=== PATIENT | male | born 2000 | race Caucasian/White ===

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

== ENCOUNTER → 2019-07-31 | Outpatient (CLI) | payer OTHER ==
[~2019-07-31] MED LIST: CONRAY-43 43% 50ML VIAL (Q9960) As Ordered ONE; LIDOCAINE 1% MDV 20ML VIAL As Ordered ONE; methylPREDNISolone 80MG/ML SUSP 1ML VIAL (J1040) As Ordered ONE; methylPREDNISolone SUSP 40 MG/ML (DEPO-medrol) VIAL (J1030) As Ordered ONE
--- NOTE | 2019-07-31 16:52 | REP ---
Reason For Exam/Comment: Left hip pain Procedure: Left hip intra-articular injection The procedure was performed by CHAIM Landin, under the direct supervision of Dr. Marie. The benefits and risks including but not limited to pain, infection, bleeding and anaphylaxis were explained to the patient and informed consent was obtained both verbally and written. Directly prior to the start of the procedure, a formal timeout was completed in the procedure room. The left femoral neck joint space was localized using fluoroscopic guidance. The skin was prepped and draped in the usual sterile fashion. 5 mL of 1% lidocaine 10 mg/ml was used as a local anesthetic. Using fluoroscopic guidance a 22-gauge spinal needle was inserted and advanced to the left femoral neck joint space. 3 mL of Conray 43 was injected to verify needle placement. A 2 mL solution containing a 10 mL 1% lidocaine 10 mg/ml and 2 ml of Depo-Medrol 40 mg/ml was injected into the joint. The needle was removed and hemostasis was achieved. The patient tolerated the procedure well and there were no immediate complications. 0.1 minutes of fluoroscopy time was utilized for this procedure. Some fluoroscopic images are performed with last image hold technology. These images require no additional radiation. Reviewed by CHAIM Muro 07/31/2019 01:08 P Electronically Signed by Jose Luis Marie MD 07/31/2019 04:43 P
== END ==
LOC: M RADPRO 10:44
PROVIDERS: ATTEND Orthopaedic Surgery
DX: M25.552 Pain in left hip (principal); M91.12 Juvenile osteochondrosis of head of femur [Legg-Calve-Perthes], left leg
CPT/HCPCS: 20610; 77002; J1030; Q9960

== ENCOUNTER 2021-03-03 17:57 | Emergency (ER) | payer OTHER ==
[~2021-03-03] VITALS: Ht 165.1 cm; Wt 91.6 kg
[2021-03-03] MEDS ORDERED: ARIP1TAB10 PO (18:04)
[2021-03-03] MEDS ORDERED: GUAN1TAB19 PO (18:04)
[2021-03-03] MEDS ORDERED: DICL75TA PO (18:04)
[2021-03-03] MEDS ORDERED: OMEP40CA4 PO (18:04)
--- OUTSIDE RECORDS SUMMARY | 2021-03-03 18:25 | CCD ---
Author Author Ney Yifanchavo ThompsonMelly Organization Unknown Address [address] [address] Phone Care Team Providers Care Puller Out Name Role Phone Melly Brewster PCP Allergies, Adverse Reactions, Alerts No Data in Section Problem List Concept Problem Description Status Start Date Created Date Resolv ed Date Snomed Code F29 Unspecified Schizophrenia Spectrum and Other Psy chotic Disorder Active 09/24/2015 09/24/2015 Medications Rx Norm Medication Route Route Concept Start Date Stop Date Dosage Mo quency Duration Formula Strength Dosage Form Dosage Form Code Dosage Description Medication Id Account Npid Author First Name Author Last Name Taxonomy Code Taxonomy Desc Phone Number [phone] aripiprazole by mouth [id number] 01/03/2020 at bedtime 15 mg t ablet 75446 [phone] Melly Leone [id number] Nurse Practitioner [phone] guanfacine by mouth [id number] 04/06/2020 02/03/2021 once a day 30 4 mg tablet extended release 24 hr as directed 31126 [id number] [phone] Melly Ney [id number] Nurse Practitioner [phone] Social History Social History Element Description Concept Effective Date Smoking Status Unknown if ever smoked [id number] Immunizations No Data in Section Vital Signs No Data in Section Procedures Date Concept Id Description Targeted Site Concept Targeted Site Concept Type 12/31/2020 19758 E/M Level 3 - Established Patient CPT Patient has no history of implantable de vices Encounters Encounter Start Date End Date Encounter Type Description Diagnosis Di agnosis Desc Location Author First Name Author Last Name Npid Taxonomy Cod e Taxonomy Desc Phone Number Location Addr1 Location Addr2 Location City Location [place] Location Zip [address] 12/31/2020 12/31/2020 14969 E/M Level 3 - Established Pa tient F29 Unspecified Schizophrenia Spectrum and Other Psychotic Disorder [facility] Ney Pickard [phone] [id number] Nurse Practition [phone] [address] [place] [phone] Plan of Treatment No Data in Section Lab Results No Data in Section Instructions No Data in Section Functional Cognitive Status No Data in Section Insurance Providers Insurance Id Policy Effective Date Policy Thru Date Company N ar[employer] [id number] 2018 [employer]
--- OUTSIDE RECORDS SUMMARY | 2021-03-03 18:25 | CCD ---
Author Author Yifan Harrell Organization Unknown Address [address] [address] Phone Care Team Providers Care Manager Garage Name Role Phone Julio Cesar Chrissy PCP Allergies, Adverse Reactions, Alerts No Data [...] Name Taxonomy Code Taxonomy Desc Phone Number [phone] aripiprazole by mouth [id number] 01/03/2020 05/09/2021 at bedtime 30 15 mg tablet 27629 [phone] Melly Brewster [id number] Nurse P nisa [phone] guanfacine by mouth [id number] 04/06/2020 05/09/2021 once a day 30 4 mg tablet extended release 24 hr as directed 42905 [phone] [phone] Melly Brewster [id number] Nurse Practitioner [phone] Social History Social History Element Description Concept Effective Date Smoking Status Unknown if ever smoked [id number] Immunizations No Data in Section Vital Signs No Data in Section Procedures Date Concept Id Description Targeted Site Concept Targeted Site Concept Type 03/01/2021 49560 Extended Individual Psychotherapy - 45 min CPT Patient has no history of implantable de vices Encounters Encounter Start Date End Date Encounter Type Description Diagnosis Di agnosis Desc Location Author First Name Author Last Name Npid Taxonomy Cod e Taxonomy Desc Phone Number Location Addr1 Location Addr2 Location City Location Sta Location Zip [address] 03/01/2021 03/01/2021 55265 Extended Individual Psych otherapy - 45 min F29 Unspecified Schizophrenia Spectrum and Other Psychotic Disorder [facility] Julio Cesar Chrissy [phone] [id number] Social Wo rker [phone] [address] [place] [phone] Plan of Treatment No Data in Section Lab Results No Data in Section Instructions No Data in Section Insurance Providers Insurance Id Policy Effective Date Policy Thru Date Company N ar[employer] [id number] 2018 [employer]
--- OUTSIDE RECORDS SUMMARY | 2021-03-03 18:25 | CCD ---
Author Author Yifan Harrell Organization Unknown Address [address] [address] Phone Care Team Providers Care Harness Rigger Name Role Phone Julio Cesar Chrissy PCP [...] Name Taxonomy Code Taxonomy Desc Phone Number [phone] aripiprazole by mouth [id number] 01/03/2020 05/09/2021 at bedtime 30 15 mg tablet 95657 [phone] Melly Brewster [id number] Nurse P nisa [phone] guanfacine by mouth [id number] 04/06/2020 05/09/2021 once a day 30 4 mg tablet extended release 24 hr as directed 00751 [phone] 84 Melly Brewster [id number] Nurse Practitioner [phone] Social History Social History Element Description Concept Effective Date Smoking Status Unknown if ever smoked [id number] Immunizations No Data in Section Vital Signs No Data in Section Procedures Date Concept Id Description Targeted Site Concept Targeted Site Concept Type 02/15/2021 38695 Extended Individual Psychotherapy - 45 min CPT Patient has no history of implantable de vices Encounters Encounter Start Date End Date Encounter Type Description Diagnosis Di agnosis Desc Location Author First Name Author Last Name Npid Taxonomy Cod e Taxonomy Desc Phone Number Location Addr1 Location Addr2 Location City Location Sta Location Zip [address] 02/15/2021 02/15/2021 43274 Extended Individual Psych otherapy - 45 min F29 Unspecified Schizophrenia Spectrum and Other Psychotic Disorder [facility] Julio Cesar Chrissy [phone] [id number] Social Wo rker [phone] [address] [place] [phone] Plan of Treatment No Data in Section Lab Results No Data in Section Instructions No Data in Section Insurance Providers Insurance Id Policy Effective Date Policy Thru Date Company N ar[employer] [id number] 2018 [employer]
--- OUTSIDE RECORDS SUMMARY | 2021-03-03 18:25 | CCD ---
Author Author Yifan Harrell Organization Unknown Address [address] [address] Phone Care Team Providers Care Network Operations Manager Name Role Phone Chrissy Harrell PCP Allergies, Adverse Reactions, Alerts No Data [...] Name Taxonomy Code Taxonomy Desc Phone Number [phone] aripiprazole by mouth [id number] 01/03/2020 at bedtime 15 mg t ablet 44067 [phone] Melly Brewster [id number] Nurse Practitioner [phone] guanfacine by mouth [id number] 04/06/2020 02/03/2021 once a day 30 4 mg tablet extended release 24 hr as directed 10828 [id number] 84 Melly Brewster [id number] Nurse Practitioner [phone] Social History Social History Element Description Concept Effective Date Smoking Status Unknown if ever smoked [id number] Immunizations No Data in Section Vital Signs No Data in Section Procedures Date Concept Id Description Targeted Site Concept Targeted Site Concept Type 12/09/2020 08486 Extended Individual Psychotherapy - 45 min CPT Patient has no history of implantable de vices Encounters Encounter Start Date End Date Encounter Type Description Diagnosis Di agnosis Desc Location Author First Name Author Last Name Npid Taxonomy Cod e Taxonomy Desc Phone Number Location Addr1 Location Addr2 Location City Location Sta Location Zip [address] 12/09/2020 12/09/2020 50445 Extended Individual Psych otherapy - 45 min F29 Unspecified Schizophrenia Spectrum and Other Psychotic Disorder [facility] Julio Cesar Lowe [phone] [id number] Social Wo rker [phone] [address] [place] [phone] Plan of Treatment No Data in Section Lab Results No Data in Section Instructions No Data in Section Insurance Providers Insurance Id Policy Effective Date Policy Thru Date Company Angeline arredondo [id number] 2018 [employer]
--- OUTSIDE RECORDS SUMMARY | 2021-03-03 18:25 | CCD ---
Author Author Yifan Harrell Organization Unknown Address [address] [address] Phone Care Team Providers Care Oil Treater Name Role Phone Chrissy Harrell PCP Allergies, [...] Name Taxonomy Code Taxonomy Desc Phone Number [phone] aripiprazole by mouth [id number] 01/03/2020 at bedtime 15 mg t ablet 83766 [phone] Melly Brewster [id number] Nurse Practitioner [phone] guanfacine by mouth [id number] 04/06/2020 02/03/2021 once a day 30 4 mg tablet extended release 24 hr as directed 97550 857356 [id number] 84 Melly Brewster [id number] Nurse Practitioner [phone] Social History Social History Element Description Concept Effective Date Smoking Status Unknown if ever smoked [id number] Immunizations No Data in Section Vital Signs No Data in Section Procedures Date Concept Id Description Targeted Site Concept Targeted Site Concept Type 01/04/2021 67460 Extended Individual Psychotherapy - 45 min CPT Patient has no history of implantable de vices Encounters Encounter Start Date End Date Encounter Type Description Diagnosis Di agnosis Desc Location Author First Name Author Last Name Npid Taxonomy Cod e Taxonomy Desc Phone Number Location Addr1 Location Addr2 Location [facility] Location [facility] Location Zip [address] 01/04/2021 01/04/2021 71190 Extended Individual Psych otherapy - 45 min F29 Unspecified Schizophrenia Spectrum and Other Psychotic Disorder Community [facility] Julio Cesar Lowe [phone] [id number] Social Wo rker [phone] [address] [place] [phone] Plan of Treatment No Data in Section Lab Results No Data in Section Instructions No Data in Section Insurance Providers Insurance Id Policy Effective Date Policy Thru Date Company [employer]eline arredondo [id number] 2018 [employer]
--- OUTSIDE RECORDS SUMMARY | 2021-03-03 18:25 | CCD ---
Author Author Yifan Harrell Organization Unknown Address [address] [address] Phone Care Team Providers Care Dental Surgeon Name Role Phone Chrissy Harrell PCP Allergies, [...] Name Taxonomy Code Taxonomy Desc Phone Number [phone] aripiprazole by mouth [id number] 01/03/2020 at bedtime 15 mg t ablet 38634 [phone] Melly Brewster [id number] Nurse Practitioner [phone] guanfacine by mouth [id number] 04/06/2020 02/03/2021 once a day 30 4 mg tablet extended release 24 hr as directed 46358 [id number] 84 Melly Brewster [id number] Nurse Practitioner [phone] Social History Social History Element Description Concept Effective Date Smoking Status Unknown if ever smoked [id number] [id number] Immunizations No Data in Section Vital Signs No Data in Section Procedures Date Concept Id Description Targeted Site Concept Targeted Site Concept Type 12/07/2020 21921 Extended Individual Psychotherapy - 45 min CPT Patient has no history of implantable de vices Encounters Encounter Start Date End Date Encounter Type Description Diagnosis Di agnosis Desc Location Author First Name Author Last Name Npid Taxonomy Cod e Taxonomy Desc Phone Number Location Addr1 Location Addr2 Location [facility] Company Location [facility] Location Zip [address] 12/07/2020 12/07/2020 58959 Extended Individual Psych otherapy - 45 min F29 Unspecified Schizophrenia Spectrum and Other Psychotic Disorder Community [facility] Julio Cesar Lowe [phone] [id number] Social Wo rker [phone] [address] [place] [phone] Plan of Treatment No Data in Section Lab Results No Data in Section Instructions No Data in Section Insurance Providers Insurance Id Policy Effective Date Policy Thru Date Company Angeline arredondo [id number] 2018 [employer]
--- OUTSIDE RECORDS SUMMARY | 2021-03-03 18:25 | CCD ---
Author Author Ney Yifanchavo ThompsonMelly Organization Unknown Address [address] [address] Phone Care Team Providers Care Foreign Service Officer Name Role Phone Melly Brewster PCP Allergies, [...] Name Taxonomy Code Taxonomy Desc Phone Number [phone] aripiprazole by mouth [id number] 01/03/2020 at bedtime 15 mg t ablet 13051 [phone] Melly Leone [id number] Nurse Practitioner [phone] guanfacine by mouth [id number] 04/06/2020 02/03/2021 once a day 30 4 mg tablet extended release 24 hr as directed 56127 [id number] 84 Melly Ney [id number] Nurse Practitioner [phone] Social History Social History Element Description Concept Effective Date Smoking Status Unknown if ever smoked [id number] Immunizations No Data in Section Vital Signs No Data in Section Procedures Date Concept Id Description Targeted Site Concept Targeted Site Concept Type 12/03/2020 79667 E/M Level 3 - Established Patient CPT Patient has no history of implantable de vices Encounters Encounter Start Date End Date Encounter Type Description Diagnosis Di agnosis Desc Location Author First Name Author Last Name Npid Taxonomy Cod e Taxonomy Desc Phone Number Location Addr1 Location Addr2 Location City Location Sta te Location Zip [address] 12/03/2020 12/03/2020 51548 E/M Level 3 - Established Pa tient F29 Unspecified Schizophrenia Spectrum and Other Psychotic Disorder [facility] Ney Pickard [phone] [id number] Nurse [facility] [phone] [address] [place] [phone] Plan of Treatment No Data in Section Lab Results No Data in Section Instructions No Data in Section Functional Cognitive Status No Data in Section Insurance Providers Insurance Id Policy Effective Date Policy Thru Date Company N ar[employer] [id number] 2018 [employer]
--- OUTSIDE RECORDS SUMMARY | 2021-03-03 18:25 | CCD ---
Author Author Dorenejuan aYifan trejo Organization Unknown Address [address] [address] Phone Care Team Providers Care Supplier Quality Engineering Manager Name Role Phone Hayley Martins PCP Allergies, Adverse Reactions, Alerts No Data [...] Name Taxonomy Code Taxonomy Desc Phone Number [phone] aripiprazole by mouth [id number] 01/03/2020 at bedtime 15 mg t ablet 48174 [phone] Melly Brewster [id number] Nurse Practitioner [phone] guanfacine by mouth [id number] 04/06/2020 02/03/2021 once a day 30 4 mg tablet extended release 24 hr as directed 51326 [phone] 84 Melly Brewster [id number] Nurse Practitioner [phone] Social History Social History Element Description Concept Effective Date Smoking Status Unknown if ever smoked [id number] Immunizations No Data in Section Vital Signs Encounter Date Height Ins Weight Lbs Bmi Bp Systolic Bp Diastoli c Oxygen Saturation Respiration Rate Pulse Rate Body Temp Head Circumference Heigh t Lying 12/21/2020 64.00 199.00 34.15 123 87 0.00 18 77 100.10 0.0 0 .00 Procedures Date Concept Id Description Targeted Site Concept Targeted Site Concept Type 12/21/2020 59526 Health Monitoring - 30 Min CPT Patient has no history of implantable de vices Encounters Encounter Start Date End Date Encounter Type Description Diagnosis Di agnosis Desc Location Author First Name Author Last Name Npid Taxonomy Cod e Taxonomy Desc Phone Number Location Addr1 Location Addr2 Location City Location [place] Location Zip [address] 12/21/2020 12/21/2020 66523 Health Monitoring - 30 Min F 29 Unspecified Schizophrenia Spectrum and Other Psychotic Disorder Community [facility] Hayley [phone] [id number] Registered Nurse [phone] [address] [place] [phone] Plan of Treatment No Data in Section Lab Results No Data in Section Instructions No Data in Section Functional Cognitive Status No Data in Section Insurance Providers Insurance Id Policy Effective Date Policy Thru Date Company N ar[employer]fo [id number] 2018 [employer]
--- OUTSIDE RECORDS SUMMARY | 2021-03-03 18:25 | CCD ---
Author Author Ney Yifanchavo ThompsonMelly Organization Unknown Address [address] [address] Phone Care Team Providers Care Bingo Caller Name Role Phone Melly Brewster PCP Allergies, [...] Name Taxonomy Code Taxonomy Desc Phone Number [phone] aripiprazole by mouth [id number] 01/03/2020 at bedtime 15 mg t ablet 71696 [phone] Melly Leone [id number] Nurse Practitioner [phone] guanfacine by mouth [id number] 04/06/2020 03/31/2021 once a day 30 4 mg tablet extended release 24 hr as directed 55781 029116 [id number] 84 Melly Ney [id number] Nurse Practitioner [phone] Social History Social History Element Description Concept Effective Date Smoking Status Unknown if ever smoked [id number] Immunizations No Data in Section Vital Signs No Data in Section Procedures Date Concept Id Description Targeted Site Concept Targeted Site Concept Type 02/08/2021 87711 E/M Level 3 - Established Patient CPT Patient has no history of implantable de vices Encounters Encounter Start Date End Date Encounter Type Description Diagnosis Di agnosis Desc Location Author First Name Author Last Name Npid Taxonomy Cod e Taxonomy Desc Phone Number Location Addr1 Location Addr2 Location City Location Sta te Location Zip [address] 02/08/2021 02/08/2021 08927 E/M Level 3 - Established Pa tient F29 Unspecified Schizophrenia Spectrum and Other Psychotic Disorder [facility] Ney Pickard [phone] [id number] Nurse [facility] [phone] [address] [place] [phone] Plan of Treatment No Data in Section Lab Results No Data in Section Instructions No Data in Section Functional Cognitive Status No Data in Section Insurance Providers Insurance Id Policy Effective Date Policy Thru Date Company N arnulfo [id number] 2018 [employer]
--- OUTSIDE RECORDS SUMMARY | 2021-03-03 18:26 | CCD ---
Author Author [facility] Organization [facility] Address Unknown Phone Unavailable Care Team Providers Care Wigs Salesperson Name Role Phone Darci Giang MD Unavailable Unavailable Darci Giang MD Unavailable Unavailable Darci Giang MD Unavailable Unavailable Darci Giang MD Unavailable Unavailable Darci Giang MD Unavailable Unavailable Darci Giang MD Unavailable Unavailable Darci Giang MD Unavailable Unavailable Darci Giang MD Unavailable Unavailable Darci Giang MD Unavailable Unavailable Darci Giang MD Unavailable Unavailable Darci Giang MD Unavailable Unavailable Darci Giang MD Unavailable Unavailable Darci Giang MD Unavailable Unavailable Darci Giang MD Unavailable Unavailable Darci Giang MD Unavailable Unavailable Darci Giang MD Unavailable Unavailable Darci Giang MD Unavailable Unavailable Darci Giang MD Unavailable Unavailable Darci Giang MD Unavailable Unavailable Darci Giang MD Unavailable Unavailable Darci Giang MD Unavailable Unavailable Darci Giang MD Unavailable Unavailable Darci Giang MD Unavailable Unavailable Darci Giang MD Unavailable Unavailable Darci Giang MD Unavailable Unavailable Darci Giang MD Unavailable Unavailable Darci Giang MD Unavailable Unavailable Darci Giang MD Unavailable Unavailable Darci Giang MD Unavailable Unavailable Darci Giang MD Unavailable Unavailable Darci Giang MD Unavailable Unavailable Darci Giang MD Unavailable Unavailable Darci Giang MD Unavailable Unavailable Darci Giang MD Unavailable Unavailable Darci Giang MD Unavailable Unavailable Darci Giang MD Unavailable Unavailable Darci Giang MD Unavailable Unavailable Darci Giang MD Unavailable Unavailable Darci Giang MD Unavailable Unavailable Darci Giang MD Unavailable Unavailable Darci Giang MD Unavailable Unavailable Darci Giang MD Unavailable Unavailable Darci Giang MD Unavailable Unavailable Darci Giang MD Unavailable Unavailable Darci Giang MD Unavailable Unavailable Darci Giang MD Unavailable Unavailable Darci Giang MD Unavailable Unavailable Darci Giang MD Unavailable Unavailable Darci Giang MD Unavailable Unavailable Darci Giang MD Unavailable Unavailable Darci Giang MD Unavailable Unavailable Darci Giang MD Unavailable Unavailable Darci Giang MD Unavailable Unavailable Darci Giang MD Unavailable Unavailable Darci Giang MD Unavailable Unavailable Darci Giang MD Unavailable Unavailable Darci Giang MD Unavailable Unavailable Darci Giang MD Unavailable Unavailable Darci Giang MD Unavailable Unavailable Darci Giang MD Unavailable Unavailable Darci Giang MD Unavailable Unavailable Darci Giang MD Unavailable Unavailable Darci Giang MD Unavailable Unavailable Darci Giang MD Unavailable Unavailable Darci Giang MD Unavailable Unavailable Darci Giang MD Unavailable Unavailable Darci Giang MD Unavailable Unavailable Darci Giang MD Unavailable Unavailable Darci Giang MD Unavailable Unavailable Darci Giang MD Unavailable Unavailable Darci Giang MD Unavailable Unavailable Darci Giang MD Unavailable Unavailable Darci Giang MD Unavailable Unavailable Darci Giang MD Unavailable Unavailable Darci Giang MD Unavailable Unavailable Darci Giang MD Unavailable Unavailable Darci Giang MD Unavailable Unavailable Darci Giang MD Unavailable Unavailable Giang, Darci Mendez MD Unavailable Unavailable Giang, Darci Mendez MD Unavailable Unavailable Giang, Darci Mendez MD Unavailable Unavailable Giang, Darci Mendez MD Unavailable Unavailable Giang, Darci Mendez MD Unavailable Unavailable Giang, Darci Mendez MD Unavailable Unavailable Giang, Darci Mendez MD Unavailable Unavailable Giang, Darci Mendez MD Unavailable Unavailable Giang, Darci Mendez MD Unavailable Unavailable Giang, Darci Mendez MD Unavailable Unavailable Giang, Darci Mendez MD Unavailable Unavailable Giang, Darci Mendez MD Unavailable Unavailable Giang, Darci Mendez MD Unavailable Unavailable Giang, Darci Mendez MD Unavailable Unavailable Giang, Darci Mendez MD Unavailable Unavailable LETTIERE, A CHAYA PA Unavailable Unavailable LETTIERE, A CHAYA PA Unavailable Unavailable LETTIERE, A CHAYA PA Unavailable Unavailable LETTIERE, A CHAYA PA Unavailable Unavailable LETTIERE, A CHAYA PA Unavailable Unavailable LETTIERE, A CHAYA PA Unavailable Unavailable LETTIERE, A CHAYA PA Unavailable Unavailable LETTIERE, A CHAYA PA Unavailable Unavailable LETTIERE, A CHAYA PA Unavailable Unavailable LETTIERE, A CHAYA PA Unavailable Unavailable LETTIERE, A CHAYA PA Unavailable Unavailable LETTIERE, A CHAYA PA Unavailable Unavailable LETTIERE, A CHAYA PA Unavailable Unavailable LETTIERE, A CHAYA PA Unavailable Unavailable LETTIERE, A CHAYA PA Unavailable Unavailable LETTIERE, A CHAYA PA Unavailable Unavailable LETTIERE, A CHAYA PA Unavailable Unavailable LETTIERE, A CHAYA PA Unavailable Unavailable LETTIERE, A CHAYA PA Unavailable Unavailable LETTIERE, A CHAYA PA Unavailable Unavailable LETTIERE, A CHAYA PA Unavailable Unavailable LETTIERE, A CHAYA PA Unavailable Unavailable LETTIERE, A CHAYA PA Unavailable Unavailable LETTIERE, A CHAYA PA Unavailable Unavailable LETTIERE, A CHAYA PA Unavailable Unavailable LETTIERE, A CHAYA PA Unavailable Unavailable LETTIERE, A CHAYA PA Unavailable Unavailable LETTIERE, A CHAYA PA Unavailable Unavailable LETTIERE, A CHAYA PA Unavailable Unavailable LETTIERE, A CHAYA PA Unavailable Unavailable LETTIERE, A CHAYA PA Unavailable Unavailable Nowak, P Henry PA Unavailable Unavailable Nowak, P Henry PA Unavailable Unavailable Nowak, P Henry PA Unavailable Unavailable Nowak, P Henry PA Unavailable Unavailable Nowak, P Henry PA Unavailable Unavailable Nowak, P Henry PA Unavailable Unavailable Nowak, P Henry PA Unavailable Unavailable Nowak, P Henry PA Unavailable Unavailable Nowak, P Henry PA Unavailable Unavailable Nowak, P Henry PA Unavailable Unavailable Nowak, P Henry PA Unavailable Unavailable Nowak, P Henry PA Unavailable Unavailable Nowak, P Henry PA Unavailable Unavailable Nowak, P Henry PA Unavailable Unavailable Nowak, P Henry PA Unavailable Unavailable Nowak, P Henry PA Unavailable Unavailable Nowak, P Henry PA Unavailable Unavailable Nowak, P Henry PA Unavailable Unavailable Nowak, P Henry PA Unavailable Unavailable Nowak, P Henry PA Unavailable Unavailable Nowak, P Henry PA Unavailable Unavailable Nowak, P Henry PA Unavailable Unavailable Nowak, P Henry PA Unavailable Unavailable Nowak, P Henry PA Unavailable Unavailable Nowak, P Henry PA Unavailable Unavailable Nowak, P Henry PA Unavailable Unavailable Nowak, P Henry PA Unavailable Unavailable Nowak, P Henry PA Unavailable Unavailable Nowak, P Henry PA Unavailable Unavailable Nowak, P Henry PA Unavailable Unavailable Nowak, P Henry PA Unavailable Unavailable Nowak, P Henry PA Unavailable Unavailable Nowak, P Henry PA Unavailable Unavailable Nowak, P Henry PA Unavailable Unavailable Nowak, P Henry PA Unavailable Unavailable Nowak, P Henry PA Unavailable Unavailable Nowak, P Henyr PA Unavailable Unavailable Nowak, P Henry PA Unavailable Unavailable Nowak, P Henry PA Unavailable Unavailable Nowak, P Henry PA Unavailable Unavailable Nowak, P Henry PA Unavailable Unavailable Nowak, P Henry PA Unavailable Unavailable Riley, Morena Erendira PA Unavailable Unavailable Riley, Morena Erendira PA Unavailable Unavailable Riley, Morena Erendira PA Unavailable Unavailable Riley, Morena Erendira PA Unavailable Unavailable Riley, Morena Erendira PA Unavailable Unavailable Riley, Morena Erendira PA Unavailable Unavailable Riley, Morena Erendira PA Unavailable Unavailable Riley, Morena Erendira PA Unavailable Unavailable Riley, Morena Erendira PA Unavailable Unavailable Riley, Morena Erendira PA Unavailable Unavailable Veley, Yarelis PRIMARY OPERATOR Unavailable Unavailable Veley, Yarelis PRIMARY OPERATOR Unavailable Unavailable Veley, Yarelis PRIMARY OPERATOR Unavailable Unavailable Veley, Yarelis PRIMARY OPERATOR Unavailable Unavailable Veley, Yarelis PRIMARY OPERATOR Unavailable Unavailable Veley, Yarelis PRIMARY OPERATOR Unavailable Unavailable Veley, Yarelis PRIMARY OPERATOR Unavailable Unavailable Veley, Yarelis PRIMARY OPERATOR Unavailable Unavailable Veley, Yarelis PRIMARY OPERATOR Unavailable Unavailable Veley, Yarelis PRIMARY OPERATOR Unavailable Unavailable Veley, Yarelis PRIMARY OPERATOR Unavailable Unavailable Veley, Yarelis PRIMARY OPERATOR Unavailable Unavailable Veley, Yarelis PRIMARY OPERATOR Unavailable Unavailable Veley, Yarelis PRIMARY OPERATOR Unavailable Unavailable Veley, Yarelis PRIMARY OPERATOR Unavailable Unavailable Veley, Yarelis PRIMARY OPERATOR Unavailable Unavailable Veley, Yarelis PRIMARY OPERATOR Unavailable Unavailable Veley, Yarelis PRIMARY OPERATOR Unavailable Unavailable Veley, Yarelis PRIMARY OPERATOR Unavailable Unavailable Veley, Yarelis PRIMARY OPERATOR Unavailable Unavailable Veley, Yarelis PRIMARY OPERATOR Unavailable Unavailable Veley, Yarelis PRIMARY OPERATOR Unavailable Unavailable Veley, Yarelis PRIMARY OPERATOR Unavailable Unavailable Veley, Yarelis PRIMARY OPERATOR Unavailable Unavailable Veley, Yarelis PRIMARY OPERATOR Unavailable Unavailable Veley, Yarelis PRIMARY OPERATOR Unavailable Unavailable Veley, Yarelis PRIMARY OPERATOR Unavailable Unavailable Veley, Yarelis PRIMARY OPERATOR Unavailable Unavailable Veley, Yarelis PRIMARY OPERATOR Unavailable Unavailable Veley, Yarelis PRIMARY OPERATOR Unavailable Unavailable Veley, Yarelis PRIMARY OPERATOR Unavailable Unavailable Veley, Yarelis PRIMARY OPERATOR Unavailable Unavailable Veley, Yarelis PRIMARY OPERATOR Unavailable Unavailable Veley, Yarelis PRIMARY OPERATOR Unavailable Unavailable Veley, Yarelis PRIMARY OPERATOR Unavailable Unavailable Alguire, Hayley Unavailable NEY, H BEREKET PRIMARY OPERATOR Unavailable Unavailable NEY, H BEREKET PRIMARY OPERATOR Unavailable Unavailable NEY, H BEREKET PRIMARY OPERATOR Unavailable Unavailable NEY, H BEREKET PRIMARY OPERATOR Unavailable Unavailable NEY, H BEREKET PRIMARY OPERATOR Unavailable Unavailable NEY, H BEREKET PRIMARY OPERATOR Unavailable Unavailable NEY, H BEREKET PRIMARY OPERATOR Unavailable Unavailable NEY, H BEREKET PRIMARY OPERATOR Unavailable Unavailable NEY, H BEREKET PRIMARY OPERATOR Unavailable Unavailable Veley, Yarelis PRIMARY OPERATOR Unavailable Unavailable Veley, Yarelis PRIMARY OPERATOR Unavailable Unavailable Veley, Yarelis PRIMARY OPERATOR Unavailable Unavailable Veley, Yarelis PRIMARY OPERATOR Unavailable Unavailable Veley, Yarelis PRIMARY OPERATOR Unavailable Unavailable Veley, Yarelis PRIMARY OPERATOR Unavailable Unavailable Veley, Yarelis PRIMARY OPERATOR Unavailable Unavailable Veley, Yarelis PRIMARY OPERATOR Unavailable Unavailable Veley, Yarelis PRIMARY OPERATOR Unavailable Unavailable Veley, Yarelis PRIMARY OPERATOR Unavailable Unavailable Veley, Yarelis PRIMARY OPERATOR Unavailable Unavailable Veley, Yarelis PRIMARY OPERATOR Unavailable Unavailable Veley, Yarelis PRIMARY OPERATOR Unavailable Unavailable Veley, Yarelis PRIMARY OPERATOR Unavailable Unavailable Veley, Yarelis PRIMARY OPERATOR Unavailable Unavailable Veley, Yarelis PRIMARY OPERATOR Unavailable Unavailable Veley, Yarelis PRIMARY OPERATOR Unavailable Unavailable Veley, Yarelis PRIMARY OPERATOR Unavailable Unavailable Veley, Yarelis PRIMARY OPERATOR Unavailable Unavailable Veley, Yarelis PRIMARY OPERATOR Unavailable Unavailable Veley, Yarelis PRIMARY OPERATOR Unavailable Unavailable Veley, Yarelis PRIMARY OPERATOR Unavailable Unavailable Veley, Yarelis PRIMARY OPERATOR Unavailable Unavailable Veley, Yarelis PRIMARY OPERATOR Unavailable Unavailable Veley, Yarelis PRIMARY OPERATOR Unavailable Unavailable Veley, Yarelis PRIMARY OPERATOR Unavailable Unavailable Veley, Yarelis PRIMARY OPERATOR Unavailable Unavailable Veley, Yarelis PRIMARY OPERATOR Unavailable Unavailable Veley, Yarelis PRIMARY OPERATOR Unavailable Unavailable Veley, Yarelis PRIMARY OPERATOR Unavailable Unavailable Veley, Yarelis PRIMARY OPERATOR Unavailable Unavailable Veley, Yarelis PRIMARY OPERATOR Unavailable Unavailable Veley, Yarelis PRIMARY OPERATOR Unavailable Unavailable Veley, Yarelis PRIMARY OPERATOR Unavailable Unavailable Veley, Yarelis PRIMARY OPERATOR Unavailable Unavailable Chrissy Harrell Unavailable Re-disclosure Warning The records that you are about to access may contain information from federally-assisted alcohol or drug abuse programs. If such information is present, then the following federally mandated warning applies: This information has been disclosed to you from records protected by federal confidentiality rules (42 CFR part 2). The federal rules prohibit you from making any further disclosure of this information unless further disclosure is expressly permitted by the written consent of the person to whom it pertains or as otherwise permitted by 42 CFR part 2. A general authorization for the release of medical or other information is NOT sufficient for this purpose. The Federal rules restrict any use of the information to criminally investigate or prosecute any alcohol or drug abuse patient.The records that you are about to access may contain highly sensitive health information, the redisclosure of which is protected by Article 27-F of the [facility] Public Health law. If you continue you may have access to information: Regarding HIV / AIDS; Provided by facilities licensed or operated by the [facility] Office of Mental Health; or Provided by the [facility] Office for People With Developmental Disabilities. If such information is present, then the following [facility] mandated warning applies: This information has been disclosed to you from confidential records which are protected by state law. State law prohibits you from making any further disclosure of this information without the specific written consent of the person to whom it pertains, or as otherwise permitted by law. Any unauthorized further disclosure in violation of state law may result in a fine or intermediate sentence or both. A general authorization for the release of medical or other information is NOT sufficient authorization for further disc losure. Allergies and Adverse Reactions Type Description Substance Reaction Status Data Source(s ) Propensity to adverse reactions NO KNOWN ALLERGIES NO KNOWN ALLERGIES [facility] Allergy to substance Allergy to substance Allergy to substance [facility] ([facility]) Family History Family Member Name Family Member Gender Family Member Status Date o f Status Description Data Source(s) Unknown Unknown Problem [facility] ([facility]) Encounters Encounter Providers Location Date Indications Data Source(s ) Extended Individual Psychotherapy - 45 min Attender: Chrissyrod Harrell [facility] 03/01/2021 11:45:00 AM EDT - 03/01/2021 11:45:00 AM EDT [facility] ([facility]) Attender: Chrissy Harrell 03/01/2021 12:00:00 AM EDT [facility] ([facility]) Extended Individual Psychotherapy - 45 min Attender: Chrissy Harrell [facility] 02/15/2021 03:00:00 AM EDT - 02/15/2021 03:00:00 AM EDT [facility] ([facility]) Attender: Chrissy Harrell 02/15/2021 12:00:00 AM EDT [facility] ([facility]) Outpatient Attender: BEREKET CALLOWAY NP [facility] 02/08/2021 02:00:00 AM EDT - 02/08/2021 02:00:00 AM EDT [facility] ([facility]) Attender: BEREKET CALLOWAY NP 02/08/2021 12:00:00 AM EDT [facility] ([facility]) Extended Individual Psychotherapy - 45 min Attender: Chrissy Harrell [facility] 01/04/2021 11:45:00 AM EDT - 01/04/2021 11:45:00 AM EDT [facility] ([facility]) Attender: Chrissy Harrell 01/04/2021 12:00:00 AM EDT [facility] ([facility]) Outpatient Attender: BEREKET CALLOWAY NP [facility] 12/31/2020 02:00:00 AM EDT - 12/31/2020 02:00:00 AM EDT [facility] ([facility]) Attender: BEREKET CALLOWAY NP 12/31/2020 12:00:00 AM EDT [facility] ([facility]) Health Monitoring - 30 Min Attender: Hayley Mayomaya Mani [facility] 12/21/2020 02:30:00 AM EDT - 12/21/2020 02:30:00 AM EDT [facility] ([facility]) Attender: Hayley Martins 12/21/2020 12:00:00 AM EDT [facility] ([facility]) Extended Individual Psychotherapy - 45 min Attender: Chrissy [facility] 12/09/2020 11:00:00 AM EDT - 12/09/2020 11:00:00 AM EDT [facility] ([facility]) Attender: Chrissy Harrell 12/09/2020 12:00:00 AM EDT [facility] ([facility]) Attender: Chrissy Harrell 12/08/2020 12:00:00 AM EDT [facility] ([facility]) Extended Individual Psychotherapy - 45 min Attender: [facility] 12/07/2020 12:00:00 PM EDT - 12/07/2020 12:00:00 PM EDT [facility] ([facility]) Outpatient Attender: BEREKET CALLOWAY NP [facility] 12/03/2020 01:00:00 AM EDT - 12/03/2020 01:00:00 AM EDT [facility] ([facility]) Attender: BEREKET CALLOWAY NP 12/03/2020 12:00:00 AM EDT [facility] ([facility]) Extended Individual Psychotherapy - 45 min Attender: Chrissy [facility] 11/16/2020 11:45:00 AM EDT - 11/16/2020 11:45:00 AM EDT [facility] ([facility]) Attender: Chrissy Harrell 11/16/2020 12:00:00 AM EDT [facility] ([facility]) Outpatient Attender: CAHYA herman 11/10/2020 11:00:00 AM EDT [facility] ([facility]) Outpatient Attender: BEREKET CALLOWAY NP [facility] 11/05/2020 03:00:00 AM EDT - 11/05/2020 03:00:00 AM EDT [facility] ([facility]) Attender: BEREKET CALLOWAY NP 11/05/2020 12:00:00 AM EDT [facility] ([facility]) Extended Individual Psychotherapy - 45 min Attender: Chrissy Harrell [facility] 11/02/2020 11:45:00 AM EDT - 11/02/2020 11:45:00 AM EDT [facility] ([facility]) Attender: Chrissy Harrell 11/02/2020 12:00:00 AM EDT [facility] ([facility]) Attender: Chrissy Harrell 10/21/2020 12:00:00 AM EDT [facility] ([facility]) Brief Individual Psychotherapy - 30 min Attender: Chrissy dozier [facility] 10/20/2020 02:00:00 AM EDT - 10/20/2020 02:00:00 AM EDT [facility] ([facility]) Outpatient Attender: BEREKET CALLOWAY NP [facility]itza 10/06/2020 04:30:00 AM EDT - 10/06/2020 04:30:00 AM EDT [facility] ([facility]) Attender: BEREKET CALLOWAY NP 10/06/2020 12:00:00 AM EDT [facility] ([facility]) Extended Individual Psychotherapy - 45 min Attender: Chrissy Harrell [facility] 10/05/2020 11:45:00 AM EDT - 10/05/2020 11:45:00 AM EDT [facility] ([facility]) Attender: Chrissy Harrell 10/05/2020 12:00:00 AM EDT [facility] ([facility]) Attender: Chrissy Harrell 09/22/2020 12:00:00 AM EDT [facility] ([facility]) Extended Individual Psychotherapy - 45 min Attender: Chrissy Harrell [facility] 09/21/2020 11:30:00 AM EDT - 09/21/2020 11:30:00 AM EDT [facility] ([facility]) Attender: Chrissy Harrell 09/08/2020 12:00:00 AM EDT [facility] ([facility]) Brief Individual Psychotherapy - 30 min Attender: Chrissy dozier [facility] 09/07/2020 11:45:00 AM EDT - 09/07/2020 11:45:00 AM EDT [facility] ([facility]) Extended Individual Psychotherapy - 45 min Attender: Chrissy Harrell [facility] 08/24/2020 11:50:00 AM EDT - 08/24/2020 11:50:00 AM EDT [facility] ([facility]) Attender: Chrissy Harrell 08/24/2020 12:00:00 AM EDT [facility] ([facility]) Outpatient Attender: Erendira herman 08/14/2020 05:50:00 PM EDT [facility] ([facility]) Brief Individual Psychotherapy - 30 min Attender: Chrissy dozier [facility] 08/11/2020 03:30:00 AM EDT - 08/11/2020 03:30:00 AM EDT [facility] ([facility]) Attender: Chrissy Harrell 08/11/2020 12:00:00 AM EDT [facility] ([facility]) Outpatient Attender: BEREKET CALLOWAY NP [facility] 08/10/2020 03:00:00 AM EDT - 08/10/2020 03:00:00 AM EDT [facility] ([facility]) Attender: BEREKET CALLOWAY NP 08/10/2020 12:00:00 AM EDT [facility] ([facility]) Attender: Chrissy Harrell 07/29/2020 12:00:00 AM EST [facility] ([facility]) Extended Individual Psychotherapy - 45 min Attender: Chrissy Harrell [facility] 07/28/2020 02:00:00 AM EST - 07/28/2020 02:00:00 AM EST [facility] ([facility]) Attender: Chrissy Harrell 07/22/2020 12:00:00 AM EST [facility] ([facility]) Extended Individual Psychotherapy - 45 min Attender: Chrissy Harrell [facility] 07/20/2020 02:00:00 AM EST - 07/20/2020 02:00:00 AM EST [facility] ([facility]) Outpatient Attender: BEREKET CALLOWAY NP [facility] maritza 07/13/2020 02:30:00 AM EST - 07/13/2020 02:30:00 AM EST [facility] ([facility]) Attender: BEREKET CALLOWAY NP 07/13/2020 12:00:00 AM EST [facility] ([facility]) Extended Individual Psychotherapy - 45 min Attender: Chrissy Harrell [facility] 07/08/2020 05:00:00 AM EST - 07/08/2020 05:00:00 AM EST [facility] ([facility]) Attender: Chrissy Harrell 07/08/2020 12:00:00 AM EST [facility] ([facility]) Attender: Chrissy Harrell 06/25/2020 12:00:00 AM EST [facility] ([facility]) [id number] 30" Psychotherapy Attender: Chrissy Harrell [facility] 06/23/2020 02:00:00 AM EST - 06/23/2020 02:00:00 AM EST [facility] ([facility]) Brief Individual Psychotherapy - 30 min Attender: Chrissy dozier [facility] 06/15/2020 02:45:00 AM EST - 06/15/2020 02:45:00 AM EST [facility] ([facility]) Outpatient Attender: BEREKET CALLOWAY NP [facility] 06/15/2020 02:00:00 AM EST - 06/15/2020 02:00:00 AM EST [facility] ([facility]) Attender: BEREKET CALLOWAY NP 06/15/2020 12:00:00 AM EST [facility] ([facility]) Attender: Chrissy Harrell 06/15/2020 12:00:00 AM EST [facility] ([facility]) [id number]"Psychotherapy Attender: Chrissy Harrell [facility] 06/08/2020 02:15:00 AM EST - 06/08/2020 02:15:00 AM EST [facility] ([facility]) Attender: Chrissy Harrell 06/08/2020 12:00:00 AM EST [facility] ([facility]) [id number]"Psychotherapy Attender: Chrissy Harrell [facility] 05/13/2020 10:00:00 AM EST - 05/13/2020 10:00:00 AM EST [facility] ([facility]) Attender: Chrissy Harrell 05/13/2020 12:00:00 AM EST [facility] ([facility]) Outpatient Attender: BEREKET CALLOWAY NP [facility] Carlos salas 05/11/2020 02:30:00 AM EST - 05/11/2020 02:30:00 AM EST [facility] ([facility]) Attender: BEREKET CALLOWAY NP 05/11/2020 12:00:00 AM EST [facility] ([facility]) Yarelis Milan, SUPERVISOR GRADING-C: [address] [place] [phone], Ph. Attender: Yarelis Milan NP [facility] Medical 04/30/2020 12:00:00 AM EST [facility] ([facility]) Outpatient Attender: BEREKET CALLOWAY NP [facility] maritza 04/13/2020 04:00:00 AM EST - 04/13/2020 04:00:00 AM EST [facility] ([facility]) Brief Individual Psychotherapy - 30 min Attender: Chrissy dozier [facility] 04/13/2020 03:00:00 AM EST - 04/13/2020 03:00:00 AM EST [facility] ([facility]) Attender: BEREKET CALLOWAY NP 04/13/2020 12:00:00 AM EST [facility] ([facility]) Attender: Chrissy Harrell 04/13/2020 12:00:00 AM EST [facility] ([facility]) Attender: Chrissy Harrell 04/03/2020 12:00:00 AM EST [facility] ([facility]) Extended Individual Psychotherapy - 45 min Attender: Chrissy Harrell [facility] 04/02/2020 02:00:00 AM EST - 04/02/2020 02:00:00 AM EST [facility] ([facility]) Outpatient Attender: Yarelis Milan NP 03/20/2020 09:58:0 0 AM EDT [facility] Andrea Giang MD: [address] [place] [phone], Ph. Attender: Andrea Giang MD [facility] Medical 03/20/2020 12:00:00 AM EDT [facility] ([facility]) Andrea Giang MD: [address] [place] [phone], Ph. Attender: Andrea Giang MD [facility] Medical 03/20/2020 12:00:00 AM EDT [facility] ([facility]) Attender: Chrissy Harrell 03/20/2020 12:00:00 AM EDT [facility] ([facility]) Extended Individual Psychotherapy - 45 min Attender: Chrissy Harrell [facility] 03/19/2020 11:00:00 AM EDT - 03/19/2020 11:00:00 AM EDT [facility] ([facility]) Outpatient Attender: Henry LANDEROS [id number] 03/09/2020 12: 00:00 AM EDT Contusion of left knee, initial encounter [facility] Contusion of left knee, initial encounte r Outpatient Referrer: Henry LANDEROS 03/09/2020 12: 00:00 AM EDT Pain, unspecified [facility] Pain, unspecified Outpatient Referrer: Henry LANDEROS 03/09/2020 12: 00:00 AM EDT Pain, unspecified [facility] Pain, unspecified Extended Individual Psychotherapy - 45 min Attender: Chrissy Harrell [facility] 03/05/2020 03:15:00 AM EDT - 03/05/2020 03:15:00 AM EDT [facility] ([facility]) Attender: Chrissy Harrell 03/05/2020 12:00:00 AM EDT [facility] ([facility]) Outpatient Attender: Yarelis QUIÑONEZ 01/08/2020 12:09:0 0 PM EDT [facility] Functional Status Immunizations Vaccine Date Status Description Data Source(s) COVID-19 VACCINE Pfizer 09/20/2020 12:00:00 AM EDT completed [facility] Vaccine Series Complete: YESThis Data wa s Submitted to [facility]. COVID-19 VACCINE Pfizer 08/30/2020 12:00:00 AM EDT completed [facility]IS Vaccine Series Complete: NOThis Data was Submitted to [facility]. New in 2011. IIV4 03/20/2020 01:23:03 PM EDT completed 0.5 mL [facility] ([facility]) New in 2011. IIV4 03/20/2020 01:23:03 PM EDT completed 0.5 mL [facility] ([facility]) Medications Medication Brand Name Start Date Product Form Dose Route Admi nistrative Instructions Pharmacy Instructions Status Indications Reaction Description Data Source(s) 4 mg 02/27/2021 12:00:00 AM EDT tablet extended release 24 hr 30 TAKE ONE TABLET BY MOUTH ONCE DAILY TAKE ONE TABLET BY MOUTH ONCE DAILY SOLD: 03/01/2021 [facility] 15 mg 02/09/2021 12:00:00 AM EDT tablet 30 TAKE ONE TABLET BY MOUTH ONCE DAILY AT BEDTIME TAKE ONE TABLET BY MOUTH ONCE DAILY AT BEDTIME SOLD: 0 02/17/2021 [facility] 15 mg 01/01/2021 12:00:00 AM EDT tablet 30 TAKE ONE TABLET BY MOUTH AT BEDTIME TAKE ONE TABLET BY MOUTH AT BEDTIME SOLD: 01/06/2021 [facility] 24 HR Guanfacine 4 MG Extended Release Oral Tablet GUANFACIN E HCL 11/26/2020 12:00:00 AM EDT tablet extended release 24 hr 30 TA KE ONE TABLET BY MOUTH EVERY DAY DIRECTED TAKE ONE TABLET BY MOUTH EVERY DAY DIRECTED SOLD: 02/01/2021 [facility] 24 HR Guanfacine 4 MG Extended Release Oral Tablet GUANFACIN E HCL 11/26/2020 12:00:00 AM EDT tablet extended release 24 hr 30 TA KE ONE TABLET BY MOUTH EVERY DAY DIRECTED TAKE ONE TABLET BY MOUTH EVERY DAY DIRECTED SOLD: 11/28/2020 [facility] 15 mg 11/26/2020 12:00:00 AM EDT tablet 30 TAKE ONE TABLET BY MOUTH AT BEDTIME TAKE ONE TABLET BY MOUTH AT BEDTIME SOLD: 11/28/2020 [facility] Mupirocin 0.02 MG/MG Topical Ointment Mupirocin 11/10/2020 12:00:00 AM EDT active [facility] ([facility]) chlorhexidine gluconate 40 MG/ML Medicated Liquid Soap [Christy perez] Hibiclens 11/10/2020 12:00:00 AM EDT active [facility] ([facility]) cefdinir 300 MG Oral Capsule Cefdinir 11/10/2020 12:00:00 AM EDT ORAL active [facility] ([facility]) 300 mg 11/10/2020 12:00:00 AM EDT capsule 20 TAKE ONE CAPSULE BY MOUTH TWICE A DAY FOR 10 DAYS TAKE ONE CAPSULE BY MOUTH TWICE A DAY FOR 10 DAYS SOLD : 11/10/2020 [facility] 2 % 11/10/2020 12:00:00 AM EDT ointment 22 APPLY TO AFFECTED AREA(S) ON FACE AND ARMS TWO TIMES A DAY FOR 10 DAYS APPLY TO AFFECTED AREA(S) ON FACE AND AR MS TWO TIMES A DAY FOR 10 DAYS SOLD: 11/10/2020 [facility] 24 HR Guanfacine 4 MG Extended Release Oral Tablet GUANFACIN E HCL 10/31/2020 12:00:00 AM EDT tablet extended release 24 hr 30 TA KE ONE TABLET BY MOUTH EVERY DAY DIRECTED TAKE ONE TABLET BY MOUTH EVERY DAY DIRECTED SOLD: 11/05/2020 [facility] 15 mg 10/31/2020 12:00:00 AM EDT tablet 30 TAKE ONE TABLET BY MOUTH AT BEDTIME TAKE ONE TABLET BY MOUTH AT BEDTIME SOLD: 11/05/2020 [facility] 15 mg 09/08/2020 12:00:00 AM EDT tablet 30 TAKE ONE TABLET BY MOUTH AT BEDTIME TAKE ONE TABLET BY MOUTH AT BEDTIME SOLD: 09/13/2020 [facility] 24 HR Guanfacine 4 MG Extended Release Oral Tablet GUANFACIN E HCL 09/02/2020 12:00:00 AM EDT tablet extended release 24 hr 30 TA KE ONE TABLET BY MOUTH EVERY DAY DIRECTED TAKE ONE TABLET BY MOUTH EVERY DAY DIRECTED SOLD: 09/04/2020 [facility] 24 HR Guanfacine 4 MG Extended Release Oral Tablet GUANFACIN E HCL 09/02/2020 12:00:00 AM EDT tablet extended release 24 hr 30 TA KE ONE TABLET BY MOUTH EVERY DAY DIRECTED TAKE ONE TABLET BY MOUTH EVERY DAY DIRECTED SOLD: 01/06/2021 [facility] 24 HR Guanfacine 4 MG Extended Release Oral Tablet GUANFACIN E HCL 09/02/2020 12:00:00 AM EDT tablet extended release 24 hr 30 TA KE ONE TABLET BY MOUTH EVERY DAY DIRECTED TAKE ONE TABLET BY MOUTH EVERY DAY DIRECTED SOLD: 10/07/2020 [facility] 800-160 mg 08/14/2020 12:00:00 AM EDT tablet 14 TAKE ONE TABLET BY MOUTH TWICE A DAY FOR 7 DAYS TAKE ONE TABLET BY MOUTH TWICE A DAY FOR 7 DAYS SOLD: 08/14/2020 [facility] Sulfamethoxazole 800 MG / Trimethoprim 160 MG Oral Tablet [B actrim] Bactrim DS 08/14/2020 12:00:00 AM EDT ORAL completed [facility] ([facility]) 15 mg 08/11/2020 12:00:00 AM EDT tablet 30 TAKE ONE TABLET BY MOUTH AT BEDTIME TAKE ONE TABLET BY MOUTH AT BEDTIME SOLD: 10/07/2020 [facility] 15 mg 08/11/2020 12:00:00 AM EDT tablet 30 TAKE ONE TABLET BY MOUTH AT BEDTIME TAKE ONE TABLET BY MOUTH AT BEDTIME SOLD: 08/14/2020 [facility] Diclofenac Sodium 75 MG Delayed Release Oral Tablet DICLOFEN AC SODIUM 07/16/2020 12:00:00 AM EST tablet,delayed release (DR/EC) 60 TAKE ONE TABLET BY MOUTH TWICE A DAY TAKE ONE TABLET BY MOUTH TWICE A DAY SOLD: 08/26/2020 [facility] Diclofenac Sodium 75 MG Delayed Release Oral Tablet DICLOFEN AC SODIUM 07/16/2020 12:00:00 AM EST tablet,delayed release (DR/EC) 60 TAKE ONE TABLET BY MOUTH TWICE A DAY TAKE ONE TABLET BY MOUTH TWICE A DAY SOLD: 02/01/2021 [facility] Diclofenac Sodium 75 MG Delayed Release Oral Tablet DICLOFEN AC SODIUM 07/16/2020 12:00:00 AM EST tablet,delayed release (DR/EC) 60 TAKE ONE TABLET BY MOUTH TWICE A DAY TAKE ONE TABLET BY MOUTH TWICE A DAY SOLD: 10/07/2020 [facility] Diclofenac Sodium 75 MG Delayed Release Oral Tablet DICLOFEN AC SODIUM 07/16/2020 12:00:00 AM EST tablet,delayed release (DR/EC) 60 TAKE ONE TABLET BY MOUTH TWICE A DAY TAKE ONE TABLET BY MOUTH TWICE A DAY SOLD: 11/19/2020 [facility] Diclofenac Sodium 75 MG Delayed Release Oral Tablet DICLOFEN AC SODIUM 07/16/2020 12:00:00 AM EST tablet,delayed release (DR/EC) 60 TAKE ONE TABLET BY MOUTH TWICE A DAY TAKE ONE TABLET BY MOUTH TWICE A DAY SOLD: 07/16/2020 [facility] 15 mg 07/14/2020 12:00:00 AM EST tablet 30 TAKE ONE TABLET BY MOUTH AT BEDTIME TAKE ONE TABLET BY MOUTH AT BEDTIME SOLD: 07/14/2020 [facility] 15 mg 06/16/2020 12:00:00 AM EST tablet 30 TAKE ONE TABLET BY MOUTH AT BEDTIME TAKE ONE TABLET BY MOUTH AT BEDTIME SOLD: 06/20/2020 [facility] 24 HR Guanfacine 4 MG Extended Release Oral Tablet GUANFACIN E HCL 05/30/2020 12:00:00 AM EST tablet extended release 24 hr 30 TA KE ONE TABLET BY MOUTH EVERY DAY DIRECTED TAKE ONE TABLET BY MOUTH EVERY DAY DIRECTED SOLD: 08/04/2020 [facility] 24 HR Guanfacine 4 MG Extended Release Oral Tablet GUANFACIN E HCL 05/30/2020 12:00:00 AM EST tablet extended release 24 hr 30 TA KE ONE TABLET BY MOUTH EVERY DAY DIRECTED TAKE ONE TABLET BY MOUTH EVERY DAY DIRECTED SOLD: 06/05/2020 [facility] 24 HR Guanfacine 4 MG Extended Release Oral Tablet GUANFACIN E HCL 05/30/2020 12:00:00 AM EST tablet extended release 24 hr 30 TA KE ONE TABLET BY MOUTH EVERY DAY DIRECTED TAKE ONE TABLET BY MOUTH EVERY DAY DIRECTED SOLD: 07/03/2020 [facility] 15 mg 05/13/2020 12:00:00 AM EST tablet 30 TAKE ONE TABLET BY MOUTH AT BEDTIME TAKE ONE TABLET BY MOUTH AT BEDTIME SOLD: 05/16/2020 [facility] Amoxicillin 500 MG Oral Capsule amoxicil peyton 500 mg capsule TAKE FOUR CAPSULES BY MOUTH 1 HOUR PRIOR TO DENTAL PROCEDURE amoxicillin 500 mg capsule TAKE FOUR CAPSULES BY MOUTH 1 HOUR PRIOR TO DENTAL PROCEDURE 04/30/2020 12:00:00 AM EST completed amoxicillin 500 MG Ora l Capsule [facility] ([facility]) 300-30 mg 04/29/2020 12:00:00 AM EST tablet 20 TAKE ONE TO TWO TABLETS BY MOUTH EVERY 4 HOURS NEEDED FOR PAIN MAXIMUM DAILY DOSE = 12 TABLETS TAKE ONE TO TWO TABLETS BY MOUTH EVERY 4 HOURS NEEDED FOR PAIN MAXIMUM DAILY DOSE = 12 TABLETS SOLD: 05/01/2020 [facility] 800 mg 04/29/2020 12:00:00 AM EST tablet 20 TAKE ONE TABLET BY MOUTH EVERY 8 HOURS NEEDED FOR PAIN MAXIMUM DAILY DOSE = FOUR TABLETS TAKE ONE TABLET BY MOUTH EVERY 8 HOURS NEEDED FOR PAIN MAXIMUM DAILY DOSE = FOUR TABLETS SOLD: 04/29/2020 [facility] 15 mg 04/17/2020 12:00:00 AM EST tablet 30 TAKE ONE TABLET BY MOUTH AT BEDTIME TAKE ONE TABLET BY MOUTH AT BEDTIME SOLD: 04/21/2020 [facility] 500 mg 04/10/2020 12:00:00 AM EST capsule 4 TAKE FOUR CAPSULES BY MOUTH 1 HOUR PRIOR TO DENTAL PROCEDURE TAKE FOUR CAPSULES BY MOUTH 1 HOUR PRIOR TO DENTAL PROCEDURE SOLD: 04/21/2020 [facility] 500 mg 04/10/2020 12:00:00 AM EST capsule 4 TAKE FOUR CAPSULES BY MOUTH 1 HOUR PRIOR TO DENTAL PROCEDURE TAKE FOUR CAPSULES BY MOUTH 1 HOUR PRIOR TO DENTAL PROCEDURE SOLD: 04/10/2020 [facility] 24 HR Guanfacine 4 MG Extended Release Oral Tablet GUANFACIN E HCL 04/07/2020 12:00:00 AM EST tablet extended release 24 hr 30 TA KE ONE TABLET BY MOUTH EVERY DAY DIRECTED TAKE ONE TABLET BY MOUTH EVERY DAY DIRECTED SOLD: 04/07/2020 [facility] 24 HR Guanfacine 4 MG Extended Release Oral Tablet GUANFACIN E HCL 04/07/2020 12:00:00 AM EST tablet extended release 24 hr 30 TA KE ONE TABLET BY MOUTH EVERY DAY DIRECTED TAKE ONE TABLET BY MOUTH EVERY DAY DIRECTED SOLD: 05/06/2020 [facility] 24 HR Guanfacine 4 MG Extended Release Oral Tablet guanfacin e 04/06/2020 12:00:00 AM EST 4 mg by mouth completed <td ID="MedicationRxNorm_2">190970</td><td ID="MedicationMedication_2">guanfacine</td><td ID="MedicationRoute_2">by mouth</td><td ID="MedicationRouteConcept_2">P64167</td><td ID="MedicationStartDate_2">04/06/2020</td><td ID="MedicationStopDate_2">05/09/2021</td><td ID="MedicationDosageFrequency_2">once a day</td><td ID="MedicationDuration_2">30</td><td ID="MedicationFormulaStrength_2">4 mg</td><td ID="MedicationDosageForm_2">tablet extended release 24 hr</td><td ID="MedicationDosageFormCode_2"></td><td ID="MedicationDosageDescription_2">as directed</td><td ID="MedicationMedicationId_2">[id number]</td><td ID="MedicationAccount_2">[id number]</td><td ID="MedicationNpid_2">[id number]</td><td ID="MedicationAuthorFirstName_2">Bereket</td><td ID="MedicationAuthorLastName_2">Ney</td><td ID="MedicationTaxonomyCode_2">[id number]</td><td ID="MedicationTaxonomyDesc_2"> Nurse Practitioner</td><td ID="MedicationPhoneNumber_2">[phone]</td> [facility] ([facility]) 15 mg 02/25/2020 12:00:00 AM EDT tablet 30 TAKE ONE TABLET BY MOUTH AT BEDTIME TAKE ONE TABLET BY MOUTH AT BEDTIME SOLD: 02/26/2020 [facility] 24 HR Guanfacine 4 MG Extended Release Oral Tablet GUANFACIN E HCL 02/07/2020 12:00:00 AM EDT tablet extended release 24 hr 30 TA KE ONE TABLET BY MOUTH AT BEDTIME TAKE ONE TABLET BY MOUTH AT BEDTIME SOLD: 02/07/2020 [facility] 24 HR Guanfacine 4 MG Extended Release Oral Tablet GUANFACIN E HCL 02/07/2020 12:00:00 AM EDT tablet extended release 24 hr 30 TA KE ONE TABLET BY MOUTH AT BEDTIME TAKE ONE TABLET BY MOUTH AT BEDTIME SOLD: 03/07/2020 [facility] 500 mg 02/07/2020 12:00:00 AM EDT capsule 4 TAKE FOUR TABLETS BY MOUTH 1 HOUR PRIOR TO PROCEDURE TAKE FOUR TABLETS BY MOUTH 1 HOUR PRIOR TO PROCEDURE SOLD: 02/07/2020 [facility] 0.12 % 01/17/2020 12:00:00 AM EDT mouthwash 473 USE 15ML BY MOUTH TO SWISH FOR 30 SECONDS AND EXPECTORATE FOUR TIMES A DAY USE 15ML BY MOUTH TO SWISH FOR 30 SECONDS AND EXPECTORATE FOUR TIMES A DAY SOLD: 04/10/2020 [facility] 300-30 mg 01/17/2020 12:00:00 AM EDT tablet 20 TAKE ONE TO TWO TABLETS BY MOUTH EVERY 4 HOURS NEEDED FOR PAIN MAXIMUM DAILY DOSE = 12 TABLETS TAKE ONE TO TWO TABLETS BY MOUTH EVERY 4 HOURS NEEDED FOR PAIN MAXIMUM DAILY DOSE = 12 TABLETS SOLD: 01/17/2020 [facility] 0.12 % 01/17/2020 12:00:00 AM EDT mouthwash 473 USE 15ML BY MOUTH TO SWISH FOR 30 SECONDS AND EXPECTORATE FOUR TIMES A DAY USE 15ML BY MOUTH TO SWISH FOR 30 SECONDS AND EXPECTORATE FOUR TIMES A DAY SOLD: 01/17/2020 [facility] 800 mg 01/17/2020 12:00:00 AM EDT tablet 20 TAKE ONE TABLET BY MOUTH EVERY 6 HOURS NEEDED FOR PAIN TAKE ONE TABLET BY MOUTH EVERY 6 HOURS A S NEEDED FOR PAIN SOLD: 01/17/2020 [facility] 24 HR Guanfacine 4 MG Extended Release Oral Tablet guanfacin e 01/09/2020 12:00:00 AM EDT 4 mg completed <td ID="MedicationRxNorm_2">648500</td><td ID="MedicationMedication_2">guanfacine</td><td ID="MedicationRoute_2"></td><td ID="MedicationRouteConcept_2"></td><td ID="MedicationStartDate_2">01/09/2020</td><td ID="MedicationStopDate_2">03/09/2020</td><td ID="MedicationDosageFrequency_2"></td><td ID="MedicationDuration_2">30</td><td ID="MedicationFormulaStrength_2">4 mg</td><td ID="MedicationDosageForm_2">tablet extended release 24 hr</td><td ID="MedicationDosageFormCode_2"></td><td ID="MedicationDosageDescription_2"></td><td ID="MedicationMedicationId_2">[id number]</td><td ID="MedicationAccount_2">[id number]</td><td ID="MedicationNpid_2">[id number]</td><td ID="MedicationAuthorFirstName_2">Bereket</td><td ID="MedicationAuthorLastName_2">Ney</td><td ID="MedicationTaxonomyCode_2">[id number]</td><td ID="MedicationTaxonomyDesc_2"> Nurse Practitioner</td><td ID="MedicationPhoneNumber_2">[phone]</td> [facility] ([facility]) 500 mg 01/08/2020 12:00:00 AM EDT capsule 21 TAKE ONE CAPSULE BY MOUTH EVERY 8 HOURS UNTIL FINISHED TAKE ONE CAPSULE BY MOUTH EVERY 8 HOURS UNTIL FINISHED SOLD: 01/08/2020 [facility] Clindamycin 150 MG Oral Capsule CLINDAMYCIN HCL 01/08/2020 12:00 :00 AM EDT capsule 4 TAKE FOUR CAPSULES BY MOUTH 1 HO UR PRIOR TO APPOINTMENT TAKE FOUR CAPSULES BY MOUTH 1 HOUR PRIOR TO APPOINTMENT SOLD: 01/08/2020 [facility] Clindamycin 150 MG Oral Capsule CLINDAMYCIN HCL 01/08/2020 12:00 :00 AM EDT capsule 4 TAKE FOUR CAPSULES BY MOUTH 1 HO UR PRIOR TO APPOINTMENT TAKE FOUR CAPSULES BY MOUTH 1 HOUR PRIOR TO APPOINTMENT SOLD: 02/26/2020 [facility] 15 mg 01/03/2020 12:00:00 AM EDT tablet 30 TAKE ONE TABLET BY MOUTH AT BEDTIME TAKE ONE TABLET BY MOUTH AT BEDTIME SOLD: 01/08/2020 [facility] aripiprazole 15 MG Oral Tablet aripiprazole 01/03/2020 12:00:00 AM ED T 15 mg by mouth completed <td ID="Medica tionRxNorm_1">657890</td><td ID="MedicationMedication_1">aripiprazole</td><td ID="MedicationRoute_1">by mouth</td><td ID="MedicationRouteConcept_1">R22244</td><td ID="MedicationStartDate_1">01/03/2020</td><td ID="MedicationStopDate_1">05/09/2021</td><td ID="MedicationDosageFrequency_1">at bedtime</td><td ID="MedicationDuration_1">30</td><td ID="MedicationFormulaStrength_1">15 mg</td><td ID="MedicationDosageForm_1">tablet</td><td ID="MedicationDosageFormCode_1"></td><td ID="MedicationDosageDescription_1"></td><td ID="MedicationMedicationId_1">[id number]</td><td ID="MedicationAccount_1">[id number]</td><td ID="MedicationNpid_1">[id number]</td><td ID="MedicationAuthorFirstName_1">Bereket</td><td ID="MedicationAuthorLastName_1">Ney</td><td ID="MedicationTaxonomyCode_1">[id number]</td><td ID="MedicationTaxonomyDesc_1">Nurse Practitioner</td><td ID="MedicationPhoneNumber_1">[phone]</td> [facility] ([facility]) 15 mg 10/31/2019 12:00:00 AM EDT tablet 30 TAKE ONE TABLET BY MOUTH AT BEDTIME TAKE ONE TABLET BY MOUTH AT BEDTIME SOLD: 01/30/2020 [facility] Diclofenac Sodium 75 MG Delayed Release Oral Tablet DICLOFEN AC SODIUM 07/09/2019 12:00:00 AM EST tablet,delayed release (DR/EC) 60 TAKE ONE TABLET BY MOUTH TWICE A DAY TAKE ONE TABLET BY MOUTH TWICE A DAY SOLD: 03/21/2020 [facility] Diclofenac Sodium 75 MG Delayed Release Oral Tablet Diclofenac Sodium 75 MG Oral Tablet Delayed Release (VOLTAREN) Diclofenac Sodium 75 MG Oral Tablet Arlene yed Release (VOLTAREN) 07/09/2019 12:00:00 AM EST 75 mg Oral active Take 1 tablet by mouth Two Times Daily [facility] Diclofenac Sodium 75 MG Delayed Release Oral Tablet DICLOFEN AC SODIUM 07/09/2019 12:00:00 AM EST tablet,delayed release (DR/EC) 60 TAKE ONE TABLET BY MOUTH TWICE A DAY TAKE ONE TABLET BY MOUTH TWICE A DAY SOLD: 02/06/2020 [facility] Omeprazole 20 MG Delayed Release Oral Ca psule Omeprazole 20 MG Oral Capsule Delayed Release Omeprazole 20 MG Oral Capsule Delayed Release 07/09/19 20 12:00:00 AM EST 20 mg Oral active Take 1 c apsule by mouth daily [facility] Diclofenac Sodium 75 MG Delayed Release Oral Tablet DICLOFEN AC SODIUM 07/09/2019 12:00:00 AM EST tablet,delayed release (DR/EC) 60 TAKE ONE TABLET BY MOUTH TWICE A DAY TAKE ONE TABLET BY MOUTH TWICE A DAY SOLD: 06/20/2020 [facility] Diclofenac Sodium 75 MG Delayed Release Oral Tablet DICLOFEN AC SODIUM 07/09/2019 12:00:00 AM EST tablet,delayed release (DR/EC) 60 TAKE ONE TABLET BY MOUTH TWICE A DAY TAKE ONE TABLET BY MOUTH TWICE A DAY SOLD: 05/06/2020 [facility] Diclofenac Sodium 75 MG / Misoprostol 0. 2 MG Oral Tablet Diclofenac-miSOPROStol 75-0.2 MG Oral Tablet Delayed Release (ARTHROTEC 75) Diclofenac-miSOPROStol 75- 0.2 MG Oral Tablet Delayed Release (ARTHROTEC 75) 05/23/2019 12:00:00 AM EST 1 {tbl} Oral aborted Acute pain of left kneeLe ob-Jcpvk-Jouscjv disease, left Take 1 tablet by mouth Two Times Daily [facility] Acute pain of left knee Yyuo-Yhzrd-Jknocrc disease, left Hydrocortisone 10 MG/ML / Neomycin 3.5 M G/ML / Polymyxin B 63070 UNT/ML Otic Solution edpyeinq-xhovgrcuh-yfuqdqcwb 3.5 mg/mL-10,000 unit/mL-1 % ear solution bpzewtcm-nzhhopwtm-akagsacek 3.5 mg/mL-10,000 unit/mL-1 % ear solution completed hydrocortisone 10 MG/ML / neomycin 3.5 MG/ML / polymyxin B 08320 UNT/ML Otic Solution [facility] ([facility]) Omeprazole 20 MG Delayed Release Oral Ca psule omeprazole 20 mg capsule,delayed release omeprazole 20 mg capsule,delayed release completed omeprazole 20 MG Delayed Release Oral Capsule [facility] ([facility]) Sulfamethoxazole 800 MG / Trimethoprim 1 60 MG Oral Tablet sulfamethoxazole 800 mg-trimethoprim 160 mg tablet sulfamethoxazole 800 mg-trimethoprim 160 mg tablet completed sulfame thoxazole 800 MG / trimethoprim 160 MG Oral Tablet [facility] ([facility]) Ibuprofen 800 MG Oral Tablet ibuprofen 800 mg tablet ibuprofen 8 00 mg tablet completed ibuprofen 800 MG Oral Tablet [facility] ([facility]) Clotrimazole 10 MG/ML Topical Cream clotrimazole 1 % t opical cream clotrimazole 1 % topical cream completed clot rimazole 10 MG/ML Topical Cream [facility] ([facility]) Penicillin V Potassium 500 MG Oral Tablet penicillin V potassium 500 mg tablet penicillin V potassium 500 mg tablet c ompleted penicillin V potassium 500 MG Oral Tablet [facility] ([facility]) Clindamycin 150 MG Oral Capsule clindamycin HCl 150 mg capsule clindamycin HCl 150 mg capsule completed clindam ycin 150 MG Oral Capsule [facility] ([facility]) Insurance Providers Payer name Policy type / Coverage type Policy ID Covered democrat ID Covered democrat's relationship to gonzalez Policy Gonzalez Plan Information MEDICAID M [id number] Self [id number] EXCELLUS I [id number] Self [id number] UH I [id number] Self [id number] Managed Care - Community Plan [facility] P [id number] S [id number] Medicaid S [id number] UN COMMUNITY PLAN MCDO [id number] SP [id number] MEDICAID [id number] Medicaid P [id number] S [id number] Managed Care - [facility] Community Plan P [id number] S [id number] Managed Care - Community Plan [facility] P [id number] S [id number] Medicaid S [id number] UH I [id number] Self [id number] Managed Care - [facility] Community Plan P [id number] S [id number] Medicaid S [id number] S [id number] Managed Care - Community Plan [facility] P [id number] S [id number] Medicaid Dental O UNAVAILABLE O UN AVAILABLE 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 PLAN [id number] SP [id number] MEDICAID [id number] [employer] COMMUNITY PLAN MCDO [id number] SP [id number] [facility] [id number] SP [id number] [facility]) O [id number] S [id number] [facility] Organization (HMO) [id number] Self [id number] [facility] [employer] (HMO) [id number] Self [id number] [facility] [employer] (HMO) [id number] Self [id number] [facility] Health Maintenance Organization ([facility]) [id number] Self [id number] [facility] Health Maintenance Organization ([facility]) [id number] Self [id number] [facility] Hmo Commercial [id number] Self Managed Care - Community Plan [facility] P [id number] S [id number] Medicaid Dental O [id number] S [id number] [employer] O [id number] S [id number] [employer] O [id number] S [id number] Managed Care BCBS O [id number] S [id number] Problems, Conditions, and Diagnoses Code Display Name Description Problem Type Effective Dates Data Source(s) R52 Pain, unspecified Pain, unspecified Diagnosis 03/09/2020 02:29:38 PM EDT [facility] [facility] S80.01XA Contusion of right knee, initial encount er Contusion of right knee, initial encounter Diagnosis 03/09/2020 02:01:44 PM EDT [facility] M21.70 Unequal limb length (acquired), unspecif ied site Unequal limb length (acquired), unspecified site Diagnosis 03/09/2020 02:01:44 PM [facility] S[facility] Contusion of left knee, initial encounte r Contusion of left knee, initial encounter Diagnosis 03/09/2020 02:01:44 PM EDT [facility] F29 Unspecified psychosis not du e to a substance or known physiological condition Unspecified Schizophrenia Spectrum and Other Psychotic Disorder Condition 03/01/2021 12:00:00 AM EDT [facility] ([facility]) [id number] Tooth disorder Tooth Disorder Problem 05/02/2020 12:00: 00 AM YARITZA BLOOD ([facility]) [id number] Schizoid personality disorder Schizoid Personality Dis order Problem 05/02/2020 12:00:00 AM YARITZA BLOOD ([facility] er) [id number] Disorder of toe Disorder of Toe Problem 9 12:00:00 AM EST - 05/02/2020 12:00:00 AM YARITZA BLOOD ([facility] er) [id number] Inflammatory disorder of digestive tract Inflammatory Disorder of Digestive Tract Problem 04/09/2019 12:00:00 AM EST - 05/02/2020 12:00:00 AM YARITZA CAITIE ([facility]) [id number] Finding of Mantoux test Finding of Mantoux Test Proble m 01/30/2019 12:00:00 AM EDT - 05/02/2020 12:00:00 AM YARITZA BLOOD ([facility]) [id number] Procedure by method Procedure by Method Problem 0 01/23/2019 12:00:00 AM EDT - 05/02/2020 12:00:00 AM YARITZA BLOOD ([facility]) [id number] Impacted cerumen of bilateral ears Impac paz Cerumen of Bilateral Ears Problem 01/23/2019 12:00:00 AM EDT - 05/02/2020 12:00:00 AM YARITZA BLOOD ([facility]) [id number] Influenza vaccine needed Influenza Vaccine Needed Pro blem 01/23/2019 12:00:00 AM EDT - 05/02/2020 12:00:00 AM YARITZA CAITIE ([facility]) [id number] Tinea cruris Tinea Cruris Problem 01/23/2019 12:0 0:00 AM EDT - 05/02/2020 12:00:00 AM YARITZA CAITIE ([facility] er) [id number] Disorder of upper respiratory system Dis order of Upper Respiratory System Problem 02/06/2018 12:00:00 AM EDT - 05/02/2020 12:00:00 AM YARITZA BLOOD ([facility]) [id number] Procedure Procedure Problem 09/16/2015 12:0 0:00 AM EDT - 05/02/2020 12:00:00 AM YARITZA CAITIE ([facility]) [id number] Attention deficit hyperactivity disorder Attention Deficit Hyperactivity Disorder Problem 10/23/2013 12:00:00 AM EDT - 05/02/2020 12:00:00 AM YARITZA CAITIE ([facility]) [id number] Acne Acne Problem 05/31/2013 12:0 0:00 AM EST - 05/02/2020 12:00:00 AM EST CAITIE ([facility]) Surgeries/Procedures Procedure Description Date Indications Data Source(s) Extended Individual Psychotherapy - 45 min 03/01/2021 12:00:00 AM EDT - 03/01/2021 12:00:00 AM EDT [facility] ([facility]) Extended Individual Psychotherapy - 45 min 12:00:00 AM EDT [facility] ([facility]) Extended Individual Psychotherapy - 45 min 02/15/2021 12:00:00 AM EDT - 02/15/2021 12:00:00 AM EDT [facility] ([facility]) Extended Individual Psychotherapy - 45 min 12:00:00 AM EDT [facility] ([facility]) OFFICE OUTPATIENT VISIT 15 MINUTES 02/08 12:00:00 AM EDT - 02/08/2021 12:00:00 AM EDT [facility] ([facility]) OFFICE OUTPATIENT VISIT 15 MINUTES 02/08/2021 12:00:00 AM EDT [facility] ([facility]) Extended Individual Psychotherapy - 45 min 01/04/2021 12:00:00 AM EDT - 01/04/2021 12:00:00 AM EDT [facility] ([facility]) Extended Individual Psychotherapy - 45 min 12:00:00 AM EDT [facility] ([facility]) OFFICE OUTPATIENT VISIT 15 MINUTES 12/31 12:00:00 AM EDT - 12/31/2020 12:00:00 AM EDT [facility] ([facility]) OFFICE OUTPATIENT VISIT 15 MINUTES 12/31/2020 12:00:00 AM EDT [facility] ([facility]) PREVENT MED DESK MONITOR&/RISK FACTOR REDJ SPX 30 MIN 12/21/2020 12:00:00 AM EDT - 12/21/2020 12:00:00 AM EDT [facility] ([facility]) PREVENT MED DESK MONITOR&/RISK FACTOR REDJ SPX 30 MIN 12/21 12:00:00 AM EDT [facility] ([facility]) Extended Individual Psychotherapy - 45 min 12/09/2020 12:00:00 AM EDT - 12/09/2020 12:00:00 AM EDT [facility] ([facility]) Extended Individual Psychotherapy - 45 min 12:00:00 AM EDT [facility] ([facility]) Extended Individual Psychotherapy - 45 min 12/08/2020 12:00:00 AM EDT - 12/08/2020 12:00:00 AM EDT [facility] ([facility]) Extended Individual Psychotherapy - 45 min 12:00:00 AM EDT [facility] ([facility]) OFFICE OUTPATIENT VISIT 15 MINUTES 12/03 12:00:00 AM EDT - 12/03/2020 12:00:00 AM EDT [facility] ([facility]) OFFICE OUTPATIENT VISIT 15 MINUTES 12/03/2020 12:00:00 AM EDT [facility] ([facility]) Extended Individual Psychotherapy - 45 min 11/16/2020 12:00:00 AM EDT - 11/16/2020 12:00:00 AM EDT [facility] ([facility]) Extended Individual Psychotherapy - 45 min 12:00:00 AM EDT [facility] ([facility]) OFFICE OUTPATIENT VISIT 15 MINUTES 11/10/2020 12:00:00 AM EDT MEDENT ([facility]) OFFICE OUTPATIENT VISIT 15 MINUTES 11/05 12:00:00 AM EDT - 11/05/2020 12:00:00 AM EDT [facility] ([facility]) OFFICE OUTPATIENT VISIT 15 MINUTES 11/05/2020 12:00:00 AM EDT [facility] ([facility]) Extended Individual Psychotherapy - 45 min 11/02/2020 12:00:00 AM EDT - 11/02/2020 12:00:00 AM EDT [facility] ([facility]) Extended Individual Psychotherapy - 45 min 12:00:00 AM EDT [facility] ([facility]) Brief Individual Psychotherapy - 30 min 10/21/2020 12:00:00 AM EDT - 10/21/2020 12:00:00 AM EDT [facility] ([facility]) Brief Individual Psychotherapy - 30 min 10/20/2020 12: 00:00 AM EDT [facility] ([facility]) OFFICE OUTPATIENT VISIT 15 MINUTES 10/06 12:00:00 AM EDT - 10/06/2020 12:00:00 AM EDT [facility] ([facility]) Psychotherapy ADD ON - 30 Minutes 10/06/2020 12:00:00 AM EDT [facility] ([facility]) OFFICE OUTPATIENT VISIT 15 MINUTES 10/06/2020 12:00:00 AM EDT [facility] ([facility]) Extended Individual Psychotherapy - 45 min 10/05/2020 12:00:00 AM EDT - 10/05/2020 12:00:00 AM EDT [facility] ([facility]) Extended Individual Psychotherapy - 45 min 12:00:00 AM EDT [facility] ([facility]) Extended Individual Psychotherapy - 45 min 09/22/2020 12:00:00 AM EDT - 09/22/2020 12:00:00 AM EDT [facility] ([facility]) Extended Individual Psychotherapy - 45 min 12:00:00 AM EDT [facility] ([facility]) Brief Individual Psychotherapy - 30 min 09/08/2020 12:00:00 AM EDT - 09/08/2020 12:00:00 AM EDT [facility] ([facility]) Brief Individual Psychotherapy - 30 min 09/07/2020 12: 00:00 AM EDT [facility] ([facility]) Extended Individual Psychotherapy - 45 min 08/24/2020 12:00:00 AM EDT - 08/24/2020 12:00:00 AM EDT [facility] ([facility]) Extended Individual Psychotherapy - 45 min 12:00:00 AM EDT [facility] ([facility]) OFFICE OUTPATIENT VISIT 15 MINUTES 08/14/2020 12:00:00 AM EDT MED[facility] ([facility]) Brief Individual Psychotherapy - 30 min 08/11/2020 12:00:00 AM EDT - 08/11/2020 12:00:00 AM EDT [facility] ([facility]) Brief Individual Psychotherapy - 30 min 08/11/2020 12: 00:00 AM EDT [facility] ([facility]) OFFICE OUTPATIENT VISIT 15 MINUTES 08/10 12:00:00 AM EDT - 08/10/2020 12:00:00 AM EDT [facility] ([facility]) OFFICE OUTPATIENT VISIT 15 MINUTES 08/10/2020 12:00:00 AM EDT [facility] ([facility]) Extended Individual Psychotherapy - 45 min 07/29/2020 12:00:00 AM EST - 07/29/2020 12:00:00 AM EST [facility] ([facility]) Extended Individual Psychotherapy - 45 min 12:00:00 AM EST [facility] ([facility]) Extended Individual Psychotherapy - 45 min 07/22/2020 12:00:00 AM EST - 07/22/2020 12:00:00 AM EST [facility] ([facility]) Extended Individual Psychotherapy - 45 min 12:00:00 AM EST [facility] ([facility]) OFFICE OUTPATIENT VISIT 15 MINUTES 07/13 12:00:00 AM EST - 07/13/2020 12:00:00 AM EST [facility] ([facility]) OFFICE OUTPATIENT VISIT 15 MINUTES 07/13/2020 12:00:00 AM EST [facility] ([facility]) Extended Individual Psychotherapy - 45 min 07/08/2020 12:00:00 AM EST - 07/08/2020 12:00:00 AM EST [facility] ([facility]) Extended Individual Psychotherapy - 45 min 12:00:00 AM EST [facility] ([facility]) TEMPMHCTelemed 30" Psychotherapy 021 12:00:00 AM EST - 06/25/2020 12:00:00 AM EST [facility] ([facility]) TEMPMHCTelemed 30" Psychotherapy 06/23/2020 12:00:00 A M EST [facility] ([facility]) OFFICE OUTPATIENT VISIT 15 MINUTES 06/15 12:00:00 AM EST - 06/15/2020 12:00:00 AM EST [facility] ([facility]) OFFICE OUTPATIENT VISIT 15 MINUTES 06/15/2020 12:00:00 AM EST [facility] ([facility]) Brief Individual Psychotherapy - 30 min 06/15/2020 12:00:00 AM EST - 06/15/2020 12:00:00 AM EST [facility] ([facility]) Brief Individual Psychotherapy - 30 min 06/15/2020 12: 00:00 AM EST [facility] ([facility]) [id number]"Psychotherapy 1 12:00:00 AM EST - 06/08/2020 12:00:00 AM EST [facility] ([facility]) [id number]"Psychotherapy 06/08/2020 12:00:00 AM EST [facility] ([facility]) [id number]"Psychotherapy 0 12:00:00 AM EST - 05/13/2020 12:00:00 AM EST [facility] ([facility]) [id number]"Psychotherapy 05/13/2020 12:00:00 AM EST [facility] ([facility]) OFFICE OUTPATIENT VISIT 15 MINUTES 05/11 12:00:00 AM EST - 05/11/2020 12:00:00 AM EST [facility] ([facility]) OFFICE OUTPATIENT VISIT 15 MINUTES 05/11/2020 12:00:00 AM EST [facility] ([facility]) OFFICE OUTPATIENT VISIT 15 MINUTES 04/13 12:00:00 AM EST - 04/13/2020 12:00:00 AM EST [facility] ([facility]) OFFICE OUTPATIENT VISIT 15 MINUTES 04/13/2020 12:00:00 AM EST [facility] ([facility]) Brief Individual Psychotherapy - 30 min 04/13/2020 12:00:00 AM EST - 04/13/2020 12:00:00 AM EST [facility] ([facility]) Brief Individual Psychotherapy - 30 min 04/13/2020 12: 00:00 AM EST [facility] ([facility]) Extended Individual Psychotherapy - 45 min 04/03/2020 12:00:00 AM EST - 04/03/2020 12:00:00 AM EST [facility] ([facility]) Extended Individual Psychotherapy - 45 min 0 12:00:00 AM EST [facility] ([facility]) Extended Individual Psychotherapy - 45 min 03/20/2020 12:00:00 AM EDT - 03/20/2020 12:00:00 AM EDT [facility] ([facility]) Extended Individual Psychotherapy - 45 min 0 12:00:00 AM EDT [facility] ([facility]) Extended Individual Psychotherapy - 45 min 03/05/2020 12:00:00 AM EDT - 03/05/2020 12:00:00 AM EDT [facility] ([facility]) Extended Individual Psychotherapy - 45 min 0 12:00:00 AM EDT [facility] ([facility]) Results ID Date Data Source [id number] 09/10/2020 12:00:00 AM EDT [facility] Name Value Range Interpretation Code Description Data Tea rce(s) Supporting Document(s) SARS-CoV2 Rapid Antigen Negative [facility] This lab was ordered by [facility] and reported by [facility]. ID Date Data Source [id number] 04/30/2020 02:53:23 PM EST JOLLEY ([facility]) Name Value Range Interpretation Code Description Data Tea rce(s) Supporting Document(s) Right Ear db 20db Right Ear Db CAITIE ([facility]) Left Ear 1000hz normal [facility] 1000Hz [facility]) Right Ear 500hz normal Right Ear 500Hz ATHE ([facility]) Right Ear 1000hz normal Right Ear 1000Hz [facility] ([facility]) Left Ear db 20db Left Ear Db CAITIE ([facility]) Left Ear 500hz normal Left Ear 500Hz CAITIE ([facility]) Left Ear 4000hz normal Left Ear 4000Hz ATH NA ([facility]) Left Ear 2000hz normal Left Ear 2000Hz [facility]) Right Ear 2000hz normal Right Ear 2000Hz AT [facility]) Right Ear 4000hz normal Right Ear 4000Hz AT [facility] ([facility]) ID Date Data Source [id number] 04/30/2020 02:52:53 PM EST JOLLEY ([facility]) Name Value Range Interpretation Code Description Data Tea rce(s) Supporting Document(s) L Eye Uncorrected 20/20 L Eye Uncorrected JOLLEY ([facility]) R Eye Uncorrected 20/20 R Eye Uncorrected JOLLEY ([facility]) ID Date Data Source [id number] 03/10/2020 03:48:23 PM EDT [facility] XR KNEE 3 VIEWS [id number] RESULTInterpr eted by:Sam Ritchie MDBilateral knees 3 viewsINDICATION: PainCOMPARISON: Left knee radiographs on 07/11/2019FINDINGS:Normal bone mineralization. Joint spaces are preserved. No joint effusion within either knee. No acute fracture or dislocation.IMPRESSION:Normal bilateral knee radiographs.This document has been electronically signed by Sam Ritchie MD on 03/10/2020 3:46 PM Name Value Range Interpretation Code Description Data Tea rce(s) Supporting Document(s) ID Date Data Source [id number] 03/10/2020 09:41:14 AM EDT [facility] XR HIP- UNILAT, 2-3 VIEWS [id number] RE SULTInterpreted by:DARRELL Ponce pelvis and left hip 2 viewsINDICATION: PainCOMPARISON: 05/23/2019FINDINGS:The right femoroacetabular joint is again appropriately aligned with joint space maintained.There is again a deformity of the proximal left femoral head and neck and left acetabulum. The left acetabulum is again moderately to highly shallow (acetabular dysplasia). There is again moderate to high-grade foreshortening of the left femoral neck. There is again mild superior-lateral subluxation of the left femoral head on both neutral and frog-leg lateral views. No acute fracture is seen. No dislocation.IMPRESSION:No significant change from prior. 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, unchanged.This document has been electronically signed by Sam Ritchie MD on 03/10/2020 9:39 AM Name Value Range Interpretation Code Description Data Tea rce(s) Supporting Document(s) ID Date Data Source [id number] 03/09/2020 04:00:50 PM EDT [facility] Name Value Range Interpretation Code Description Data Tea rce(s) Supporting Document(s) Progress Note [facility] ZMTGYc0oCrDEDzXx43/ABQnoCGMzt2RuVDtqLLl2IBfmSXExS2ZdHQQ2aH7yFCA5NLnBVnYiKyEpIUJ6 [facility] [file] +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/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+gLnWcJJxes+5b2djwS8z0xcz dkLdHVHBPdlMqCMCUvadePtCtDQqlnE/5e5CtHf1/XtYcXwBqQBWwMkOmTHUjIJvT2BA6DWI2y7D4vDT z8Qa+WnMIJ4dTj/PmmleAdkkxMbCVJuhy357gHARpZK7D3bZ8lYPiQ+gxxklDJCbWJWFDadUWZyRx6Bh M0AvB9dYPgvtlRvApKp3C7Vv58NUt69Cy1Fn4Idk8g HBLoB3E6ocKlFgKhmw+bj/MoXNK0gAKk7F5sH9gQSGRpKU+yf0BgIuEXQ+EOuT5XK3OoNoKZPvEfKe01 Z9trCHZpnSWQS7MY/GhKu2fIbK0IcXLRFrtN4zlLEKUoFEU9zlYS9OmLMNAgrOqWguIuFdc6cGOkGDpO zVHS/SQdJXhoCGdJXMq4qJdhNRCTFQ2+YRVKBEvQCk wP30G4h0Zceit12HNSULSNmc74DFjZO6LWCCD49idKWdVh3NHR7Q8gJgaOeb3iHms+s8gRe8netBH5m4 iSlITP8wl1v1BUywCvfyswAtj7ZFNXAqLp66cHf8hFv4Of5LOXGzROfzivvHQ2/5CzKe1Rc1cJMKSRjv RcyHfUraYhBsUh+NRGotBH0fIKT6iuy0DgQqyRuuKI VOI65Wn2mptPyIBKavN1cYRsof3ggRZOqEUvij9gJ3dFcRLqzutffywE9DFqzSS8L/JidiB6G76S+riH Es/dPhWjnpHTpw/Um1KbniwILVPJjckvGom37jbCyRC9O2CQXdUgWzVcvkcugtTutH1jEUIEmRrIlCBN wF+KSZiQ1S738qBlBgDLuePlK6LKDEsXfkULNe+WaG v2VNNLBlsVpVDoX+k4LyJGiIBxyVV5HGbK4U9wb9BRqmhzZZuiP9xQZjuZt0xY6JE/0+kydFNd0Zfokd c1CIov3zWuh2wRUYG6QuSz+Davis/URoXsEz+brwzM4eSrZZGRCXsMAZtRz+dANSTjGNzSSfueRP0WayM4+ [file] VBMzW3EASmOTxcFCJBAo8Y Procedure Social History Code Duration Value Status Description Data Source(s ) Smoking 03/01/2021 12:00:00 AM EDT Unknown if ever smoked comp leted Unknown if ever smoked [facility] ([facility]) Smoking 02/15/2021 12:00:00 AM EDT Unknown if ever smoked comp leted Unknown if ever smoked [facility] ([facility]) Smoking 02/08/2021 12:00:00 AM EDT Unknown if ever smoked comp leted Unknown if ever smoked [facility] ([facility]) Smoking 01/04/2021 12:00:00 AM EDT Unknown if ever smoked comp leted Unknown if ever smoked [facility] ([facility]) Smoking 12/31/2020 12:00:00 AM EDT Unknown if ever smoked comp leted Unknown if ever smoked [facility] ([facility]) Smoking 12/21/2020 12:00:00 AM EDT Unknown if ever smoked comp leted Unknown if ever smoked [facility] ([facility]) Smoking 12/09/2020 12:00:00 AM EDT Unknown if ever smoked comp leted Unknown if ever smoked [facility] ([facility]) Smoking 12/08/2020 12:00:00 AM EDT Unknown if ever smoked comp leted Unknown if ever smoked [facility] ([facility]) Smoking 12/03/2020 12:00:00 AM EDT Unknown if ever smoked comp leted Unknown if ever smoked [facility] ([facility]) Smoking 11/16/2020 12:00:00 AM EDT Unknown if ever smoked comp leted Unknown if ever smoked [facility] ([facility]) Smoking 11/05/2020 12:00:00 AM EDT Unknown if ever smoked comp leted Unknown if ever smoked [facility] ([facility]) Smoking 11/02/2020 12:00:00 AM EDT Unknown if ever smoked comp leted Unknown if ever smoked [facility] ([facility]) Smoking 10/21/2020 12:00:00 AM EDT Unknown if ever smoked comp leted Unknown if ever smoked [facility] ([facility]) Smoking 10/06/2020 12:00:00 AM EDT Unknown if ever smoked comp leted Unknown if ever smoked [facility] ([facility]) Smoking 10/05/2020 12:00:00 AM EDT Unknown if ever smoked comp leted Unknown if ever smoked [facility] ([facility]) Smoking 09/22/2020 12:00:00 AM EDT Unknown if ever smoked comp leted Unknown if ever smoked [facility] ([facility]) Smoking 09/08/2020 12:00:00 AM EDT Unknown if ever smoked comp leted Unknown if ever smoked [facility] ([facility]) Smoking 08/24/2020 12:00:00 AM EDT Unknown if ever smoked comp leted Unknown if ever smoked [facility] ([facility]) Smoking 08/11/2020 12:00:00 AM EDT Unknown if ever smoked comp leted Unknown if ever smoked [facility] ([facility]) Smoking 08/10/2020 12:00:00 AM EDT Unknown if ever smoked comp leted Unknown if ever smoked [facility] ([facility]) Smoking 07/29/2020 12:00:00 AM EST Unknown if ever smoked comp leted Unknown if ever smoked [facility] ([facility]) Smoking 07/22/2020 12:00:00 AM EST Unknown if ever smoked comp leted Unknown if ever smoked [facility] ([facility]) Smoking 07/13/2020 12:00:00 AM EST Unknown if ever smoked comp leted Unknown if ever smoked [facility] ([facility]) Smoking 07/08/2020 12:00:00 AM EST Unknown if ever smoked comp leted Unknown if ever smoked [facility] ([facility]) Smoking 06/25/2020 12:00:00 AM EST Unknown if ever smoked comp leted Unknown if ever smoked [facility] ([facility]) Smoking 06/15/2020 12:00:00 AM EST Unknown if ever smoked comp leted Unknown if ever smoked [facility] ([facility]) Smoking 06/08/2020 12:00:00 AM EST Unknown if ever smoked comp leted Unknown if ever smoked [facility] ([facility]) Smoking 05/13/2020 12:00:00 AM EST Unknown if ever smoked comp leted Unknown if ever smoked [facility] ([facility]) Smoking 05/11/2020 12:00:00 AM EST Unknown if ever smoked comp leted Unknown if ever smoked [facility] ([facility]) Smoking 04/13/2020 12:00:00 AM EST Unknown if ever smoked comp leted Unknown if ever smoked [facility] ([facility]) Smoking 04/03/2020 12:00:00 AM EST Unknown if ever smoked comp leted Unknown if ever smoked [facility] ([facility]) Smoking 03/20/2020 12:00:00 AM EDT Unknown if ever smoked comp leted Unknown if ever smoked [facility] ([facility]) Alcohol intake 03/09/2020 12:00:00 AM EDT Lifetime non-drinker (finding) completed Lifetime non-drinker (finding) [facility] Tobacco use and exposure 03/09/2020 12:00:00 AM EDT Never used co mpleted Never used [facility] Smoking 03/09/2020 12:00:00 AM EDT Never smoker completed Never s moker [facility] Smoking 03/05/2020 12:00:00 AM EDT Unknown if ever smoked comp leted Unknown if ever smoked [facility] ([facility]) Vital Signs ID Date Data Source UNK Name Value Range Interpretation Code Description Data Source(s) Body height 64.00 in Normal (applies to non-numeric resu lts) 64.00 in [facility] ([facility]) Respiratory rate 18 min Normal (applies to non-numeric results) 18 min [facility] ([facility]) Body weight Measured 199.00 lbs Normal (applies to n on-numeric results) 199.00 lbs [facility] ([facility]) Body mass index (BMI) [Ratio] 34.15 kg/m2 No rmal (applies to non-numeric results) 34.15 kg/m2 [facility] ([facility]) Systolic blood pressure 123 mm[Hg] Normal (applies t o non-numeric results) 123 mm[Hg] [facility] ([facility]) Diastolic blood pressure 87 mm[Hg] Normal (applies to non-numeric results) 87 mm[Hg] [facility] ([facility]) Body temperature 100.10 degF Normal (applies to non-n umeric results) 100.10 degF [facility] ([facility]) Body height --lying 77 min Normal (applies to non-nume torsten results) 77 min [facility] ([facility]) Systolic blood pressure 123 mm[Hg] 123 mm[Hg] M EDENT ([facility]) Diastolic blood pressure 80 mm[Hg] 80 mm[Hg] MED[facility] ([facility], [facility]) Heart rate 84 /min 84 /min MED[facility] ([facility]) Respiratory rate 14 /min 14 /min [facility] ( [facility]) Oxygen saturation in Arterial blood by Pulse oximetry 97 % 97 % MEDENT ([facility], [facility]) Body temperature 97.8 [degF] 97.8 [degF] MEDENT ([facility], [facility]) Body weight 185.00 [lb_av] 185.00 [lb_av] MEDEN T ([facility], [facility]) Body height 66 [in_i] 66 [in_i] [facility] ([facility]) 5'6" Body mass index (BMI) [Ratio] 29.9 kg/m2 29.9 k g/m2 MEDENT ([facility]) Body height 0.00 in Normal (applies to non-numeric resu lts) 0.00 in [facility] ([facility]) Body weight Measured 0.00 lbs Normal (applies to n on-numeric results) 0.00 lbs [facility] ([facility]) Body mass index (BMI) [Ratio] 0.00 kg/m2 No rmal (applies to non-numeric results) 0.00 kg/m2 [facility] ([facility]) Systolic blood pressure 0 mm[Hg] Normal (applies t o non-numeric results) 0 mm[Hg] [facility] ([facility]) Diastolic blood pressure 0 mm[Hg] Normal (applies to non-numeric results) 0 mm[Hg] [facility] ([facility]) Respiratory rate 14 /min 14 /min MEDENT ( [facility]) Body weight 180.00 [lb_av] 180.00 [lb_av] MEDEN T ([facility], [facility]) Oxygen saturation in Arterial blood by Pulse oximetry 97 % 97 % MEDENT ([facility], [facility]) Body mass index (BMI) [Ratio] 29.0 kg/m2 29.0 k g/m2 MEDENT ([facility], [facility]) Body height 66 [in_i] 66 [in_i] MEDENT ([facility], [facility]) 5'6" Body temperature 97.8 [degF] 97.8 [degF] MEDENT ([facility], [facility]) Heart rate 73 /min 73 /min MEDENT ([facility], [facility]) Systolic blood pressure 138 mm[Hg] 138 mm[Hg] EDENT ([facility], [facility]) Diastolic blood pressure 86 mm[Hg] 86 mm[Hg] MEDENT ([facility], [facility]) Body height 0.00 in Normal (applies to non-numeric resu lts) 0.00 in [facility] ([facility]) Body weight Measured 0.00 lbs Normal (applies to n on-numeric results) 0.00 lbs [facility] ([facility]) Body mass index (BMI) [Ratio] 0.00 kg/m2 No rmal (applies to non-numeric results) 0.00 kg/m2 [facility] ([facility]) Systolic blood pressure 0 mm[Hg] Normal (applies t o non-numeric results) 0 mm[Hg] [facility] ([facility]) Diastolic blood pressure 0 mm[Hg] Normal (applies to non-numeric results) 0 mm[Hg] [facility] ([facility]) Body height 0.00 in Normal (applies to non-numeric resu lts) 0.00 in [facility] ([facility]) Body weight Measured 0.00 lbs Normal (applies to n on-numeric results) 0.00 lbs [facility] ([facility]) Body mass index (BMI) [Ratio] 0.00 kg/m2 No rmal (applies to non-numeric results) 0.00 kg/m2 [facility] ([facility]) Systolic blood pressure 0 mm[Hg] Normal (applies t o non-numeric results) 0 mm[Hg] [facility] ([facility]) Diastolic blood pressure 0 mm[Hg] Normal (applies to non-numeric results) 0 mm[Hg] [facility] ([facility]) Body height 0.00 in Normal (applies to non-numeric resu lts) 0.00 in [facility] ([facility]) Body weight Measured 0.00 lbs Normal (applies to n on-numeric results) 0.00 lbs [facility] ([facility]) Body mass index (BMI) [Ratio] 0.00 kg/m2 No rmal (applies to non-numeric results) 0.00 kg/m2 [facility] ([facility]) Systolic blood pressure 0 mm[Hg] Normal (applies t o non-numeric results) 0 mm[Hg] [facility] ([facility]) Diastolic blood pressure 0 mm[Hg] Normal (applies to non-numeric results) 0 mm[Hg] [facility] ([facility]) Body height 0.00 in Normal (applies to non-numeric resu lts) 0.00 in [facility] ([facility]) Body weight Measured 0.00 lbs Normal (applies to n on-numeric results) 0.00 lbs [facility] ([facility]) Body mass index (BMI) [Ratio] 0.00 kg/m2 No rmal (applies to non-numeric results) 0.00 kg/m2 [facility] ([facility]) Systolic blood pressure 0 mm[Hg] Normal (applies t o non-numeric results) 0 mm[Hg] [facility] ([facility]) Diastolic blood pressure 0 mm[Hg] Normal (applies to non-numeric results) 0 mm[Hg] [facility] ([facility]) Diastolic blood pressure 82 mm[Hg] 82 mm[Hg] CAITIE ([facility]) Body height 63.5 [in_i] 63.5 [in_i] CAITIE ([facility]) Body mass index (BMI) [Ratio] 32.2 kg/m2 32.2 k g/m2 CAITIE ([facility]) Systolic blood pressure 124 mm[Hg] 124 mm[Hg] John RAMÍREZ ([facility]) Body weight 2950.4 [oz_av] 2950.4 [oz_av] ATHJUDY Lopez ([facility]) Body height 0.00 in Normal (applies to non-numeric resu lts) 0.00 in [facility] ([facility]) Body weight Measured 0.00 lbs Normal (applies to n on-numeric results) 0.00 lbs [facility] ([facility]) Body mass index (BMI) [Ratio] 0.00 kg/m2 No rmal (applies to non-numeric results) 0.00 kg/m2 [facility] ([facility]) Systolic blood pressure 0 mm[Hg] Normal (applies t o non-numeric results) 0 mm[Hg] [facility] ([facility]) Diastolic blood pressure 0 mm[Hg] Normal (applies to non-numeric results) 0 mm[Hg] [facility] ([facility]) Body height 64 [in_i] 64 [in_i] CAITIE ([facility]) Body height 64 [in_i] 64 [in_i] CAITIE ([facility]) ID Date Data Source [id number] 03/10/2020 04:30:46 PM T [facility] Name Value Range Interpretation Code Description Data Source(s) WEIGHT RECORDED 184.2 lb 184.2 lb [facility] Body height Measured 60 in 60 in [facility] Patient Treatment Plan of Care Planned Activity Planned Date Details Description Data Source (s) Amoxicillin 500 MG Oral Capsule 04/30/2020 12:00:00 AM [facility] CAITIE ([facility]) Omeprazole 20 MG Delayed Release Oral Capsule 07/09/2019 12:00:00 A M [facility] Diclofenac Sodium 75 MG Delayed Release Oral Tablet 07/09/19 20 12:00:00 AM [facility] Diclofenac Sodium 75 MG / Misoprostol 0.2 MG Oral Tabl et 05/23/2019 12:00:00 AM [facility] Sulfamethoxazole 800 MG / Trimethoprim 160 MG Oral Tablet CAITIE ([facility]) Penicillin V Potassium 500 MG Oral Tablet CAITIE ([facility]) Omeprazole 20 MG Delayed Release Oral Capsule CAITIE ([facility]) Hydrocortisone 10 MG/ML / Neomycin 3.5 M G/ML / Polymyxin B 00639 UNT/ML Otic Solution CAITIE ([facility]) Ibuprofen 800 MG Oral Tablet CAITIE ([facility]) Clotrimazole 10 MG/ML Topical Cream CAITIE ([facility]) Clindamycin 150 MG Oral Capsule CAITIE ([facility])
[2021-03-03 19:47] LABS: HEMOGLOBIN 16.4 g/dl (13.5-17.5); MEAN CORPUSCULAR HEMOGLOBIN 30.7 pg (27.0-33.0); MEAN CORPUSCULAR HGB CONC 34.9 g/dl (32.0-36.5); PLATELET COUNT, AUTOMATED 218 10^3/uL (150-450); RED BLOOD COUNT 5.34 10^6/uL (4.30-6.10); WHITE BLOOD COUNT 8.9 10^3/uL (4.0-10.0)
--- OUTSIDE RECORDS SUMMARY | 2021-03-03 19:59 | CCD ---
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 Name Role Phone Darci Giang MD Unavailable [...] Morena Erendira PA Unavailable Unavailable Veley, Yarelis ADULT CARE PROVIDER Unavailable Unavailable Veley, Yarelis ADULT CARE PROVIDER Unavailable Unavailable Veley, Yarelis ADULT CARE PROVIDER Unavailable Unavailable Veley, Yarelis ADULT CARE PROVIDER Unavailable Unavailable Veley, Yarelis ADULT CARE PROVIDER Unavailable Unavailable Veley, Yarelis ADULT CARE PROVIDER Unavailable Unavailable Veley, Yarelis ADULT CARE PROVIDER Unavailable Unavailable Veley, Yarelis ADULT CARE PROVIDER Unavailable Unavailable Veley, Yarelis ADULT CARE PROVIDER Unavailable Unavailable Veley, Yarelis ADULT CARE PROVIDER Unavailable Unavailable Veley, Yarelis ADULT CARE PROVIDER Unavailable Unavailable Veley, Yarelis ADULT CARE PROVIDER Unavailable Unavailable Veley, Yarelis ADULT CARE PROVIDER Unavailable Unavailable Veley, Yarelis ADULT CARE PROVIDER Unavailable Unavailable Veley, Yarelis ADULT CARE PROVIDER Unavailable Unavailable Veley, Yarelis ADULT CARE PROVIDER Unavailable Unavailable Veley, Yarelis ADULT CARE PROVIDER Unavailable Unavailable Veley, Yarelis ADULT CARE PROVIDER Unavailable Unavailable Veley, Yarelis ADULT CARE PROVIDER Unavailable Unavailable Veley, Yarelis ADULT CARE PROVIDER Unavailable Unavailable Veley, Yarelis ADULT CARE PROVIDER Unavailable Unavailable Veley, Yarelis ADULT CARE PROVIDER Unavailable Unavailable Veley, Yarelis ADULT CARE PROVIDER Unavailable Unavailable Veley, Yarelis ADULT CARE PROVIDER Unavailable Unavailable Veley, Yarelis ADULT CARE PROVIDER Unavailable Unavailable Veley, Yarleis ADULT CARE PROVIDER Unavailable Unavailable Veley, Yarelis ADULT CARE PROVIDER Unavailable Unavailable Veley, Yarelis ADULT CARE PROVIDER Unavailable Unavailable Veley, Yarelis ADULT CARE PROVIDER Unavailable Unavailable Veley, Yarelis ADULT CARE PROVIDER Unavailable Unavailable Veley, Yarelis ADULT CARE PROVIDER Unavailable Unavailable Veley, Yarelis ADULT CARE PROVIDER Unavailable Unavailable Veley, Yarelis ADULT CARE PROVIDER Unavailable Unavailable Veley, Yarelis ADULT CARE PROVIDER Unavailable Unavailable Veley, Yarelis ADULT CARE PROVIDER Unavailable Unavailable Alguire, Hayley Unavailable NEY, H BEREKET ADULT CARE PROVIDER Unavailable Unavailable NEY, H BEREKET ADULT CARE PROVIDER Unavailable Unavailable NEY, H BEREKET ADULT CARE PROVIDER Unavailable Unavailable NEY, H BEREKET ADULT CARE PROVIDER Unavailable Unavailable NEY, H BEREKET ADULT CARE PROVIDER Unavailable Unavailable NEY, H BEREKET ADULT CARE PROVIDER Unavailable Unavailable NEY, H BEREKET ADULT CARE PROVIDER Unavailable Unavailable NEY, H BEREKET ADULT CARE PROVIDER Unavailable Unavailable NEY, H BEREKET ADULT CARE PROVIDER Unavailable Unavailable Veley, Yarelis ADULT CARE PROVIDER Unavailable Unavailable Veley, Yarelis ADULT CARE PROVIDER Unavailable Unavailable Veley, Yarelis ADULT CARE PROVIDER Unavailable Unavailable Veley, Yarelis ADULT CARE PROVIDER Unavailable Unavailable Veley, Yarelis ADULT CARE PROVIDER Unavailable Unavailable Veley, Yarelis ADULT CARE PROVIDER Unavailable Unavailable Veley, Yarelis ADULT CARE PROVIDER Unavailable Unavailable Veley, Yarelis ADULT CARE PROVIDER Unavailable Unavailable Veley, Yarelis ADULT CARE PROVIDER Unavailable Unavailable Veley, Yarelis ADULT CARE PROVIDER Unavailable Unavailable Veley, Yarelis ADULT CARE PROVIDER Unavailable Unavailable Veley, Yarelis ADULT CARE PROVIDER Unavailable Unavailable Veley, Yarelis ADULT CARE PROVIDER Unavailable Unavailable Veley, Yarelis ADULT CARE PROVIDER Unavailable Unavailable Veley, Yarelis ADULT CARE PROVIDER Unavailable Unavailable Veley, Yarelis ADULT CARE PROVIDER Unavailable Unavailable Veley, Yarelis ADULT CARE PROVIDER Unavailable Unavailable Veley, Yarelis ADULT CARE PROVIDER Unavailable Unavailable Veley, Yarelis ADULT CARE PROVIDER Unavailable Unavailable Veley, Yarelis ADULT CARE PROVIDER Unavailable Unavailable Veley, Yarelis ADULT CARE PROVIDER Unavailable Unavailable Veley, Yarelis ADULT CARE PROVIDER Unavailable Unavailable Veley, Yarelis ADULT CARE PROVIDER Unavailable Unavailable Veley, Yarelis ADULT CARE PROVIDER Unavailable Unavailable Veley, Yarelis ADULT CARE PROVIDER Unavailable Unavailable Veley, Yarelis ADULT CARE PROVIDER Unavailable Unavailable Veley, Yarelis ADULT CARE PROVIDER Unavailable Unavailable Veley, Yarelis ADULT CARE PROVIDER Unavailable Unavailable Veley, Yarelis ADULT CARE PROVIDER Unavailable Unavailable Veley, Yarelis ADULT CARE PROVIDER Unavailable Unavailable Veley, Yarelis ADULT CARE PROVIDER Unavailable Unavailable Veley, Yarelis ADULT CARE PROVIDER Unavailable Unavailable Veley, Yarelis ADULT CARE PROVIDER Unavailable Unavailable Veley, Yarelis ADULT CARE PROVIDER Unavailable Unavailable Veley, Yarelis ADULT CARE PROVIDER Unavailable Unavailable Chrissy Harrell Unavailable Re-disclosure Warning [...] is protected by Article 27-F of the [facility] Public Health law. If you continue you may have access to information: Regarding HIV / AIDS; Provided by facilities licensed or operated by the [facility] Office of Mental Health; or Provided by the [facility] Office for People With Developmental Disabilities. If such information is present, then the following [facility] mandated warning applies: This information has been [...] law may result in a fine or usp sentence or both. A general authorization for the release of medical or other information is NOT sufficient authorization for further disc losure. Allergies and Adverse Reactions Type Description Substance Reaction Status Data Source(s ) Propensity to adverse reactions NO KNOWN ALLERGIES NO KNOWN ALLERGIES [facility] Allergy to substance Allergy to substance Allergy to substance [facility] ([facility]) Family History Family Member Name Family Member Gender Family Member Status Date o f Status Description Data Source(s) Unknown Unknown Problem [facility] ([facility]) Encounters Encounter Providers Location Date Indications Data Source(s ) Extended Individual Psychotherapy - 45 min Attender: Chrissyrod Harrell [facility] 03/01/2021 11:45:00 AM EDT - 03/01/2021 11:45:00 AM EDT [facility] ([facility]) Attender: Chrissy Harrell 03/01/2021 12:00:00 AM EDT [facility] ([facility]) Extended Individual Psychotherapy - 45 min Attender: Chrissy Harrell [facility] 02/15/2021 03:00:00 AM EDT - 02/15/2021 03:00:00 AM EDT [facility] ([facility]) Attender: Chrissy Harrell 02/15/2021 12:00:00 AM EDT [facility] ([facility]) Outpatient Attender: BEREKET CALLOWAY NP [facility] 02/08/2021 02:00:00 AM EDT - 02/08/2021 02:00:00 AM EDT [facility] ([facility]) Attender: BEREKET CALLOWAY NP 02/08/2021 12:00:00 AM EDT [facility] ([facility]) Extended Individual Psychotherapy - 45 min Attender: Chrissy Harrell [facility] 01/04/2021 11:45:00 AM EDT - 01/04/2021 11:45:00 AM EDT [facility] ([facility]) Attender: Chrissy Harrell 01/04/2021 12:00:00 AM EDT [facility] ([facility]) Outpatient Attender: BEREKET CALLOWAY NP [facility] 12/31/2020 02:00:00 AM EDT - 12/31/2020 02:00:00 AM EDT [facility] ([facility]) Attender: BEREKET CALLOWAY NP 12/31/2020 12:00:00 AM EDT [facility] ([facility]) Health Monitoring - 30 Min Attender: Hayley Mayomaya Mani [facility] 12/21/2020 02:30:00 AM EDT - 12/21/2020 02:30:00 AM EDT [facility] ([facility]) Attender: Hayley Martins 12/21/2020 12:00:00 AM EDT [facility] ([facility]) Extended Individual Psychotherapy - 45 min Attender: Chrissy [facility] 12/09/2020 11:00:00 AM EDT - 12/09/2020 11:00:00 AM EDT [facility] ([facility]) Attender: Chrissy Harrell 12/09/2020 12:00:00 AM EDT [facility] ([facility]) Attender: Chrissy Harrell 12/08/2020 12:00:00 AM EDT [facility] ([facility]) Extended Individual Psychotherapy - 45 min Attender: [facility] 12/07/2020 12:00:00 PM EDT - 12/07/2020 12:00:00 PM EDT [facility] ([facility]) Outpatient Attender: BEREKET CALLOWAY NP [facility] 12/03/2020 01:00:00 AM EDT - 12/03/2020 01:00:00 AM EDT [facility] ([facility]) Attender: BEREKET CALLOWAY NP 12/03/2020 12:00:00 AM EDT [facility] ([facility]) Extended Individual Psychotherapy - 45 min Attender: Chrissy [facility] 11/16/2020 11:45:00 AM EDT - 11/16/2020 11:45:00 AM EDT [facility] ([facility]) Attender: Chrissy Harrell 11/16/2020 12:00:00 AM EDT [facility] ([facility]) Outpatient Attender: CHAYA herman 11/10/2020 11:00:00 AM EDT [facility] ([facility]) Outpatient Attender: BEREKET CALLOWAY NP [facility] 11/05/2020 03:00:00 AM EDT - 11/05/2020 03:00:00 AM EDT [facility] ([facility]) Attender: BEREKET CALLOWAY NP 11/05/2020 12:00:00 AM EDT [facility] ([facility]) Extended Individual Psychotherapy - 45 min Attender: Chrissy Harrell [facility] 11/02/2020 11:45:00 AM EDT - 11/02/2020 11:45:00 AM EDT [facility] ([facility]) Attender: Chrissy Harrell 11/02/2020 12:00:00 AM EDT [facility] ([facility]) Attender: Chrissy Harrell 10/21/2020 12:00:00 AM EDT [facility] ([facility]) Brief Individual Psychotherapy - 30 min Attender: Chrissy dozier [facility] 10/20/2020 02:00:00 AM EDT - 10/20/2020 02:00:00 AM EDT [facility] ([facility]) Outpatient Attender: BEREKET CALLOWAY NP [facility] 10/06/2020 04:30:00 AM EDT - 10/06/2020 04:30:00 AM EDT [facility] ([facility]) Attender: BEREKET CALLOWAY NP 10/06/2020 12:00:00 AM EDT [facility] ([facility]) Extended Individual Psychotherapy - 45 min Attender: Chrissy Harrell [facility] 10/05/2020 11:45:00 AM EDT - 10/05/2020 11:45:00 AM EDT [facility] ([facility]) Attender: Chrissy Harrell 10/05/2020 12:00:00 AM EDT [facility] ([facility]) Attender: Chrissy Harrell 09/22/2020 12:00:00 AM EDT [facility] ([facility]) Extended Individual Psychotherapy - 45 min Attender: Chrissy Harrell [facility] 09/21/2020 11:30:00 AM EDT - 09/21/2020 11:30:00 AM EDT [facility] ([facility]) Attender: Chrissy Harrell 09/08/2020 12:00:00 AM EDT [facility] ([facility]) Brief Individual Psychotherapy - 30 min Attender: Chrissy dozier [facility] 09/07/2020 11:45:00 AM EDT - 09/07/2020 11:45:00 AM EDT [facility] ([facility]) Extended Individual Psychotherapy - 45 min Attender: hCrissy Harrell [facility] 08/24/2020 11:50:00 AM EDT - 08/24/2020 11:50:00 AM EDT [facility] ([facility]) Attender: Chrissy Harrell 08/24/2020 12:00:00 AM EDT [facility] ([facility]) Outpatient Attender: Erendira herman 08/14/2020 05:50:00 PM EDT [facility] ([facility]) Brief Individual Psychotherapy - 30 min Attender: Chrissy dozier [facility] 08/11/2020 03:30:00 AM EDT - 08/11/2020 03:30:00 AM EDT [facility] ([facility]) Attender: Chrissy Harrell 08/11/2020 12:00:00 AM EDT [facility] ([facility]) Outpatient Attender: BEREKET CALLOWAY NP [facility] 08/10/2020 03:00:00 AM EDT - 08/10/2020 03:00:00 AM EDT [facility] ([facility]) Attender: BEREKET CALLOWAY NP 08/10/2020 12:00:00 AM EDT [facility] ([facility]) Attender: Chrissy Harrell 07/29/2020 12:00:00 AM EST [facility] ([facility]) Extended Individual Psychotherapy - 45 min Attender: Chrissy Harrell [facility] 07/28/2020 02:00:00 AM EST - 07/28/2020 02:00:00 AM EST [facility] ([facility]) Attender: Chrissy Harrell 07/22/2020 12:00:00 AM EST [facility] ([facility]) Extended Individual Psychotherapy - 45 min Attender: Chrissy Harrell [facility] 07/20/2020 02:00:00 AM EST - 07/20/2020 02:00:00 AM EST [facility] ([facility]) Outpatient Attender: BEREKET CALLOWAY NP [facility] 07/13/2020 02:30:00 AM EST - 07/13/2020 02:30:00 AM EST [facility] ([facility]) Attender: BEREKET CALLOWAY NP 07/13/2020 12:00:00 AM EST [facility] ([facility]) Extended Individual Psychotherapy - 45 min Attender: Chrissy Harrell [facility] 07/08/2020 05:00:00 AM EST - 07/08/2020 05:00:00 AM EST [facility] ([facility]) Attender: Chrissy Harrell 07/08/2020 12:00:00 AM EST [facility] ([facility]) Attender: Chrissy Harrell 06/25/2020 12:00:00 AM EST [facility] ([facility]) TEMPMHCTelemed 30" Psychotherapy Attender: Chrissy Harrell [facility] 06/23/2020 02:00:00 AM EST - 06/23/2020 02:00:00 AM EST [facility] ([facility]) Brief Individual Psychotherapy - 30 min Attender: Chrissy dozier [facility] 06/15/2020 02:45:00 AM EST - 06/15/2020 02:45:00 AM EST [facility] ([facility]) Outpatient Attender: BEREKET CALLOWAY NP [facility] 06/15/2020 02:00:00 AM EST - 06/15/2020 02:00:00 AM EST [facility] ([facility]) Attender: BEREKET CALLOWAY NP 06/15/2020 12:00:00 AM EST [facility] ([facility]) Attender: Chrissy Harrell 06/15/2020 12:00:00 AM EST [facility] ([facility]) [id number]"Psychotherapy Attender: Chrissy Harrell [facility] 06/08/2020 02:15:00 AM EST - 06/08/2020 02:15:00 AM EST [facility] ([facility]) Attender: Chrissy Harrell 06/08/2020 12:00:00 AM EST [facility] ([facility]) [id number]"Psychotherapy Attender: Chrissy Harrell [facility] 05/13/2020 10:00:00 AM EST - 05/13/2020 10:00:00 AM EST [facility] ([facility]) Attender: Chrissy Harrell 05/13/2020 12:00:00 AM EST [facility] ([facility]) Outpatient Attender: BEREKET CALLOWAY NP [facility] 05/11/2020 02:30:00 AM EST - 05/11/2020 02:30:00 AM EST [facility] ([facility]) Attender: BEREKET CALLOWAY NP 05/11/2020 12:00:00 AM EST [facility] ([facility]) Yarelis Milan, [employer]-C: [address] [place] [phone], Ph. Attender: Yarelis Milan NP [facility] Medical 04/30/2020 12:00:00 AM EST [facility] ([facility]) Outpatient Attender: BEREKET CALLOWAY NP [facility] 04/13/2020 04:00:00 AM EST - 04/13/2020 04:00:00 AM EST [facility] ([facility]) Brief Individual Psychotherapy - 30 min Attender: Chrissy dozier [facility] 04/13/2020 03:00:00 AM EST - 04/13/2020 03:00:00 AM EST [facility] ([facility]) Attender: BEREKET CALLOWAY NP 04/13/2020 12:00:00 AM EST [facility] ([facility]) Attender: Chrissy Harrell 04/13/2020 12:00:00 AM EST [facility] ([facility]) Attender: Chrissy Harrell 04/03/2020 12:00:00 AM EST [facility] ([facility]) Extended Individual Psychotherapy - 45 min Attender: Chrissy Harrell [facility] 04/02/2020 02:00:00 AM EST - 04/02/2020 02:00:00 AM EST [facility] ([facility]) Outpatient Attender: Yarelis Milan NP 03/20/2020 09:58:0 0 AM EDT [facility] Andrea Giang MD: [address] [place] [phone], Ph. Attender: Andrea Giang MD [facility] Medical 03/20/2020 12:00:00 AM EDT [facility] ([facility]) Andrea Giang MD: [address] [place] [phone], Ph. Attender: Andrea Giang MD [facility] Medical 03/20/2020 12:00:00 AM EDT [facility] ([facility]) Attender: Chrissy Harrell 03/20/2020 12:00:00 AM EDT [facility] ([facility]) Extended Individual Psychotherapy - 45 min Attender: Chrissy Harrell [facility] 03/19/2020 11:00:00 AM EDT - 03/19/2020 11:00:00 AM EDT [facility] ([facility]) Outpatient Attender: Henry LANDEROS [id number] 03/09/2020 12: 00:00 AM EDT Contusion of left knee, initial encounter [facility] Contusion of left knee, initial encounte r Outpatient Referrer: Henry LANDEROS 03/09/2020 12: 00:00 AM EDT Pain, unspecified [facility] Pain, unspecified Outpatient Referrer: Henry LANDEROS 03/09/2020 12: 00:00 AM EDT Pain, unspecified [facility] Pain, unspecified Extended Individual Psychotherapy - 45 min Attender: Chrissy Harrell [facility] 03/05/2020 03:15:00 AM EDT - 03/05/2020 03:15:00 AM EDT [facility] ([facility]) Attender: Chrissy Harrell 03/05/2020 12:00:00 AM EDT [facility] ([facility]) Outpatient Attender: Yarelis QUIÑONEZ 01/08/2020 12:09:0 0 PM EDT [facility] Functional Status Immunizations Vaccine Date Status Description Data Source(s) COVID-19 VACCINE Pfizer 09/20/2020 12:00:00 AM EDT completed [facility] Vaccine Series Complete: YESThis Data wa s Submitted to [facility] Via [employer] COVID-19 VACCINE Pfizer 08/30/2020 12:00:00 AM EDT completed [facility] Vaccine Series Complete: NOThis Data was Submitted to [facility] Via [employer] New in 2011. IIV4 03/20/2020 01:23:03 PM EDT completed 0.5 mL [facility] ([facility]) New in 2011. IIV4 03/20/2020 01:23:03 PM EDT completed 0.5 mL [facility] ([facility]) Medications Medication Brand Name Start Date [...] Mupirocin 11/10/2020 12:00:00 AM EDT active [facility] ([facility]) chlorhexidine gluconate 40 MG/ML Medicated Liquid Soap [Christy perez] Hibiclens 11/10/2020 12:00:00 AM EDT active [facility] ([facility]) cefdinir 300 MG Oral Capsule Cefdinir 11/10/2020 12:00:00 AM EDT ORAL active [facility] ([facility]) 300 mg 11/10/2020 12:00:00 AM EDT capsule [...] 08/14/2020 12:00:00 AM EDT ORAL completed [facility] ([facility]) 15 mg 08/11/2020 12:00:00 AM EDT tablet 30 TAKE ONE TABLET BY MOUTH AT BEDTIME TAKE ONE TABLET BY MOUTH AT BEDTIME SOLD: 10/07/2020 [facility] 15 mg 08/11/2020 12:00:00 AM EDT tablet 30 TAKE ONE TABLET BY MOUTH AT BEDTIME TAKE ONE TABLET BY MOUTH AT BEDTIME SOLD: 08/14/2020 [facility] Diclofenac Sodium 75 MG Delayed Release Oral Tablet DICLOFEN AC SODIUM 07/16/2020 12:00:00 AM EST tablet,delayed release (DR/EC) 60 TAKE ONE TABLET BY MOUTH TWICE A DAY TAKE ONE TABLET BY MOUTH TWICE A DAY SOLD: 08/26/2020 [facility] Diclofenac Sodium 75 MG Delayed Release Oral Tablet DICLOFEN AC SODIUM 07/16/2020 12:00:00 AM EST tablet,delayed release (DR/EC) 60 TAKE ONE TABLET BY MOUTH TWICE A DAY TAKE ONE TABLET BY MOUTH TWICE A DAY SOLD: 02/01/2021 [facility] Diclofenac Sodium 75 MG Delayed Release Oral Tablet DICLOFEN AC SODIUM 07/16/2020 12:00:00 AM EST tablet,delayed release (DR/EC) 60 TAKE ONE TABLET BY MOUTH TWICE A DAY TAKE ONE TABLET BY MOUTH TWICE A DAY SOLD: 10/07/2020 [facility] Diclofenac Sodium 75 MG Delayed Release Oral Tablet DICLOFEN AC SODIUM 07/16/2020 12:00:00 AM EST tablet,delayed release (DR/EC) 60 TAKE ONE TABLET BY MOUTH TWICE A DAY TAKE ONE TABLET BY MOUTH TWICE A DAY SOLD: 11/19/2020 [facility] Diclofenac Sodium 75 MG Delayed Release Oral Tablet DICLOFEN AC SODIUM 07/16/2020 12:00:00 AM EST tablet,delayed release (DR/EC) 60 TAKE ONE TABLET BY MOUTH TWICE A DAY TAKE ONE TABLET BY MOUTH TWICE A DAY SOLD: 07/16/2020 [facility] 15 mg 07/14/2020 12:00:00 AM EST tablet 30 TAKE ONE TABLET BY MOUTH AT BEDTIME TAKE ONE TABLET BY MOUTH AT BEDTIME SOLD: 07/14/2020 [facility] 15 mg 06/16/2020 12:00:00 AM EST tablet 30 TAKE ONE TABLET BY MOUTH AT BEDTIME TAKE ONE TABLET BY MOUTH AT BEDTIME SOLD: 06/20/2020 [facility] 24 HR Guanfacine 4 MG Extended Release [...] amoxicillin 500 MG Ora l Capsule [facility] ([facility]) 300-30 mg 04/29/2020 12:00:00 AM EST [...] EST 4 mg by mouth completed <td ID="MedicationRxNorm_2">709107</td><td ID="MedicationMedication_2">guanfacine</td><td ID="MedicationRoute_2">by mouth</td><td ID="MedicationRouteConcept_2">B98811</td><td ID="MedicationStartDate_2">04/06/2020</td><td ID="MedicationStopDate_2">05/09/2021</td><td ID="MedicationDosageFrequency_2">once a day</td><td ID="MedicationDuration_2">30</td><td ID="MedicationFormulaStrength_2">4 mg</td><td ID="MedicationDosageForm_2">tablet extended release 24 hr</td><td ID="MedicationDosageFormCode_2"></td><td ID="MedicationDosageDescription_2">as directed</td><td ID="MedicationMedicationId_2">[id number]</td><td ID="MedicationAccount_2">[id number]</td><td ID="MedicationNpid_2">[id number]</td><td ID="MedicationAuthorFirstName_2">Bereket</td><td ID="MedicationAuthorLastName_2">Ney</td><td ID="MedicationTaxonomyCode_2">[id number]</td><td ID="MedicationTaxonomyDesc_2"> Nurse Practitioner</td><td ID="MedicationPhoneNumber_2">[phone]</td> [facility] ([facility]) 15 mg 02/25/2020 12:00:00 AM EDT tablet [...] 12:00:00 AM EDT 4 mg completed <td ID="MedicationRxNorm_2">[id number]</td><td ID="MedicationMedication_2">guanfacine</td><td ID="MedicationRoute_2"></td><td ID="MedicationRouteConcept_2"></td><td ID="MedicationStartDate_2">01/09/2020</td><td ID="MedicationStopDate_2">03/09/2020</td><td ID="MedicationDosageFrequency_2"></td><td ID="MedicationDuration_2">30</td><td ID="MedicationFormulaStrength_2">4 mg</td><td ID="MedicationDosageForm_2">tablet extended release 24 hr</td><td ID="MedicationDosageFormCode_2"></td><td ID="MedicationDosageDescription_2"></td><td ID="MedicationMedicationId_2">[id number]</td><td ID="MedicationAccount_2">[id number]</td><td ID="MedicationNpid_2">[id number]</td><td ID="MedicationAuthorFirstName_2">Bereket</td><td ID="MedicationAuthorLastName_2">Ney</td><td ID="MedicationTaxonomyCode_2">[id number]</td><td ID="MedicationTaxonomyDesc_2"> Nurse Practitioner</td><td ID="MedicationPhoneNumber_2">[phone]</td> [facility] ([facility] [facility]) 500 mg 01/08/2020 12:00:00 AM EDT capsule [...] 15 mg by mouth completed <td ID="Medica tionRxNorm_1">008469</td><td ID="MedicationMedication_1">aripiprazole</td><td ID="MedicationRoute_1">by mouth</td><td ID="MedicationRouteConcept_1">V06407</td><td ID="MedicationStartDate_1">01/03/2020</td><td ID="MedicationStopDate_1">05/09/2021</td><td ID="MedicationDosageFrequency_1">at bedtime</td><td ID="MedicationDuration_1">30</td><td ID="MedicationFormulaStrength_1">15 mg</td><td ID="MedicationDosageForm_1">tablet</td><td ID="MedicationDosageFormCode_1"></td><td ID="MedicationDosageDescription_1"></td><td ID="MedicationMedicationId_1">[id number]</td><td ID="MedicationAccount_1">[id number]</td><td ID="MedicationNpid_1">[id number]</td><td ID="MedicationAuthorFirstName_1">Bereket</td><td ID="MedicationAuthorLastName_1">Ney</td><td ID="MedicationTaxonomyCode_1">[id number]</td><td ID="MedicationTaxonomyDesc_1">Nurse Practitioner</td><td ID="MedicationPhoneNumber_1">[phone]</td> [facility] ([facility]) 15 mg 10/31/2019 12:00:00 AM EDT tablet 30 TAKE ONE TABLET BY MOUTH AT BEDTIME TAKE ONE TABLET BY MOUTH AT BEDTIME SOLD: 01/30/2020 [facility] Diclofenac Sodium 75 MG Delayed Release Oral Tablet DICLOFEN AC SODIUM 07/09/2019 12:00:00 AM EST tablet,delayed release (DR/EC) 60 TAKE ONE TABLET BY MOUTH TWICE A DAY TAKE ONE TABLET BY MOUTH TWICE A DAY SOLD: 03/21/2020 [facility] Diclofenac Sodium 75 MG Delayed Release Oral Tablet Diclofenac Sodium 75 MG Oral Tablet Delayed Release (VOLTAREN) Diclofenac Sodium 75 MG Oral Tablet Arlene yed Release (VOLTAREN) 07/09/2019 12:00:00 AM EST 75 mg Oral active Take 1 tablet by mouth Two Times Daily [facility] Diclofenac Sodium 75 MG Delayed Release Oral Tablet DICLOFEN AC SODIUM 07/09/2019 12:00:00 AM EST tablet,delayed release (DR/EC) 60 TAKE ONE TABLET BY MOUTH TWICE A DAY TAKE ONE TABLET BY MOUTH TWICE A DAY SOLD: 02/06/2020 [facility]attva Omeprazole 20 MG Delayed Release Oral Ca psule Omeprazole 20 MG Oral Capsule Delayed Release Omeprazole 20 MG Oral Capsule Delayed Release 07/09/19 20 12:00:00 AM EST 20 mg Oral active Take 1 c apsule by mouth daily [facility] Diclofenac Sodium 75 MG Delayed Release Oral [...] Oral aborted Acute pain of left kneeLe ps-Tyjni-Rzogmje disease, left Take 1 tablet by mouth Two Times Daily [facility] Acute pain of left knee Yfzp-Pufzp-Jocilow disease, left Hydrocortisone 10 MG/ML / Neomycin 3.5 M G/ML / Polymyxin B 90877 UNT/ML Otic Solution qkluvtuz-dzmpnsfcl-gosmrictr 3.5 mg/mL-10,000 unit/mL-1 % ear solution qmikpgek-ujqleeuzz-koaiiupte 3.5 mg/mL-10,000 unit/mL-1 % ear solution completed hydrocortisone 10 MG/ML / neomycin 3.5 MG/ML / polymyxin B 32718 UNT/ML Otic Solution CAITIE ([facility]) Omeprazole 20 MG Delayed Release Oral Ca psule omeprazole 20 mg capsule,delayed release omeprazole 20 mg capsule,delayed release completed omeprazole 20 MG Delayed Release Oral Capsule [place] ([facility]) Sulfamethoxazole 800 MG / Trimethoprim 1 60 MG Oral Tablet sulfamethoxazole 800 mg-trimethoprim 160 mg tablet sulfamethoxazole 800 mg-trimethoprim 160 mg tablet completed sulfame thoxazole 800 MG / trimethoprim 160 MG Oral Tablet [facility] ([facility]) Ibuprofen 800 MG Oral Tablet ibuprofen 800 mg tablet ibuprofen 8 00 mg tablet completed ibuprofen 800 MG Oral Tablet [place] ([facility]) Clotrimazole 10 MG/ML Topical Cream clotrimazole 1 % t opical cream clotrimazole 1 % topical cream completed clot rimazole 10 MG/ML Topical Cream CAITIE ([facility]) Penicillin V Potassium 500 MG Oral Tablet penicillin V potassium 500 mg tablet penicillin V potassium 500 mg tablet c ompleted penicillin V potassium 500 MG Oral Tablet [facility] ([facility]) Clindamycin 150 MG Oral Capsule clindamycin HCl 150 mg capsule clindamycin HCl 150 mg capsule completed clindam ycin 150 MG Oral Capsule CA[facility]IE ([facility]) Insurance Providers Payer name Policy type / Coverage type Policy ID Covered republican ID Covered republican's relationship to gonzalez Policy Gonzalez Plan Information MEDICAID M [id number] Self [id number] EXCELLUS I [id number] Self [id number] UH I [id number] Self [id number] Managed Care - Community Plan [facility] P [id number] S [id number] Medicaid S [id number] S [id number] UN COMMUNITY PLAN MCDO [id number] SP [id number] MEDICAID [id number] Medicaid P [id number] S [id number] Managed Care - [facility] Community Plan P [id number] S [id number] Managed Care - Community Plan [facility] P [id number] S [id number] Medicaid S [id number] UH I [id number] Self [id number] Managed Care - [facility] Community Plan P [id number] S [id number] Medicaid S [id number] S [id number] Managed Care - Community Plan [facility] P [id number] S [id number] Medicaid Dental O UNAVAILABLE O UN AVAILABLE BLUE 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 YOUNGER PLAN [id number] SP [id number] MEDICAID [id number] SP [id number] UN[employer] COMMUNITY PLAN MCDO [id number] SP [id number] [facility] COMMUN[facility] [id number] SP [id number] [facility](MCAID[facility] O [id number] S [id number] [facility] Organization (HMO) [id number] Self [id number] [facility] Maintenance [facility] (HMO) [id number] Self [id number] [facility] Maintenance [facility] (HMO) [id number] Self [id number] [facility] Health Maintenance Organization ([facility] [id number] Self [id number] [facility] Health Maintenance Organization ([facility] [id number] Self [id number] [facility] Care Hmo Commercial [id number] Self Managed Care - Community Plan [facility] P [id number] S [id number] Medicaid Dental O [id number] S V [id number] D [employer] O [id number] S [id number] [place] O [id number] S [id number] Managed Care BCBS O [id number] S [id number] Problems, Conditions, and Diagnoses Code Display Name Description Problem Type Effective Dates Data Source(s) R52 Pain, unspecified Pain, unspecified Diagnosis 03/09/2020 02:29:38 PM EDT [facility] S80.01XA Contusion of right knee, initial encount er Contusion of right knee, initial encounter Diagnosis 03/09/2020 02:01:44 PM EDT [facility] M21.70 Unequal limb length (acquired), unspecif ied site Unequal limb length (acquired), unspecified site Diagnosis 03/09/2020 02:01[facility] S[facility] Contusion of left knee, initial encounte r Contusion of left knee, initial encounter Diagnosis 03/09/2020 02:01:44 PM EDT [facility] F29 Unspecified psychosis not du e to a substance or known physiological condition Unspecified Schizophrenia Spectrum and Other Psychotic Disorder Condition 03/01/2021 12:00:00 AM EDT [facility] ([facility]) [id number] Tooth disorder Tooth Disorder Problem 05/02/2020 12:00: 00 AM YARITZA BLOOD ([facility]) [id number] Schizoid personality disorder Schizoid Personality Dis order Problem 05/02/2020 12:00:00 AM YARITZA BLOOD ([facility]) [id number] Disorder of toe Disorder of Toe Problem 9 12:00:00 AM EST - 05/02/2020 12:00:00 AM YARITZA BLOOD ([facility]) [id number] Inflammatory disorder of digestive tract Inflammatory Disorder of Digestive Tract Problem 04/09/2019 12:00:00 AM EST - 05/02/2020 12:00:00 AM YARITZA CAITIE ([facility]) [id number] Finding of Mantoux test Finding of Mantoux Test Proble m 01/30/2019 12:00:00 AM EDT - 05/02/2020 12:00:00 AM YARITZA BLOOD ([facility]) [id number] Procedure by method Procedure by Method Problem 0 01/23/2019 12:00:00 AM EDT - 05/02/2020 12:00:00 AM YARITZA BLOOD ([facility]) [id number] Impacted cerumen of bilateral ears Impac paz Cerumen of Bilateral Ears Problem 01/23/2019 12:00:00 AM EDT - 05/02/2020 12:00:00 AM YARITZA BLOOD ([facility]) [id number] Influenza vaccine needed Influenza Vaccine Needed Pro blem 01/23/2019 12:00:00 AM EDT - 05/02/2020 12:00:00 AM YARITZA CAITIE ([facility]) [id number] Tinea cruris Tinea Cruris Problem 01/23/2019 12:0 0:00 AM EDT - 05/02/2020 12:00:00 AM YARITZA [place]ITIE ([facility]) [id number] Disorder of upper respiratory system Dis order of Upper Respiratory System Problem 02/06/2018 12:00:00 AM EDT - 05/02/2020 12:00:00 AM YARITZA BLOOD ([facility]) [id number] Procedure Procedure Problem 09/16/2015 12:0 0:00 AM EDT - 05/02/2020 12:00:00 AM YARITZA CAITIE ([facility]) [id number] Attention deficit hyperactivity disorder Attention Deficit Hyperactivity Disorder Problem 10/23/2013 12:00:00 AM EDT - 05/02/2020 12:00:00 AM YARITZA CAITIE ([facility]) [id number] Acne Acne Problem 05/31/2013 12:0 0:00 AM EST - 05/02/2020 12:00:00 AM EST CAITIE ([facility]) Surgeries/Procedures Procedure Description Date Indications Data Source(s) Extended Individual Psychotherapy - 45 min 03/01/2021 12:00:00 AM EDT - 03/01/2021 12:00:00 AM EDT [facility] ([facility]) Extended Individual Psychotherapy - 45 min 12:00:00 AM EDT [facility] ([facility]) Extended Individual Psychotherapy - 45 min 02/15/2021 12:00:00 AM EDT - 02/15/2021 12:00:00 AM EDT [facility] ([facility]) Extended Individual Psychotherapy - 45 min 12:00:00 AM EDT [facility] ([facility]) OFFICE OUTPATIENT VISIT 15 MINUTES 02/08 12:00:00 AM EDT - 02/08/2021 12:00:00 AM EDT [facility] ([facility]) OFFICE OUTPATIENT VISIT 15 MINUTES 02/08/2021 12:00:00 AM EDT [facility] ([facility]) Extended Individual Psychotherapy - 45 min 01/04/2021 12:00:00 AM EDT - 01/04/2021 12:00:00 AM EDT [facility] ([facility]) Extended Individual Psychotherapy - 45 min 12:00:00 AM EDT [facility] ([facility]) OFFICE OUTPATIENT VISIT 15 MINUTES 12/31 12:00:00 AM EDT - 12/31/2020 12:00:00 AM EDT [facility] ([facility]) OFFICE OUTPATIENT VISIT 15 MINUTES 12/31/2020 12:00:00 AM EDT [facility] ([facility]) PREVENT MED WEB DEVELOPER&/RISK FACTOR REDJ SPX 30 MIN 12/21/2020 12:00:00 AM EDT - 12/21/2020 12:00:00 AM EDT [facility] ([facility]) PREVENT MED WEB DEVELOPER&/RISK FACTOR REDJ SPX 30 MIN 12/21 12:00:00 AM EDT [facility] ([facility]) Extended Individual Psychotherapy - 45 min 12/09/2020 12:00:00 AM EDT - 12/09/2020 12:00:00 AM EDT [facility] ([facility]) Extended Individual Psychotherapy - 45 min 12:00:00 AM EDT [facility] ([facility]) Extended Individual Psychotherapy - 45 min 12/08/2020 12:00:00 AM EDT - 12/08/2020 12:00:00 AM EDT [facility] ([facility]) Extended Individual Psychotherapy - 45 min 12:00:00 AM EDT [facility] ([facility]) OFFICE OUTPATIENT VISIT 15 MINUTES 12/03 12:00:00 AM EDT - 12/03/2020 12:00:00 AM EDT [facility] ([facility]) OFFICE OUTPATIENT VISIT 15 MINUTES 12/03/2020 12:00:00 AM EDT [facility] ([facility]) Extended Individual Psychotherapy - 45 min 11/16/2020 12:00:00 AM EDT - 11/16/2020 12:00:00 AM EDT [facility] ([facility]) Extended Individual Psychotherapy - 45 min 12:00:00 AM EDT [facility] ([facility]) OFFICE OUTPATIENT VISIT 15 MINUTES 11/10/2020 12:00:00 AM EDT MEDENT ([facility]) OFFICE OUTPATIENT VISIT 15 MINUTES 11/05 12:00:00 AM EDT - 11/05/2020 12:00:00 AM EDT [facility] ([facility]) OFFICE OUTPATIENT VISIT 15 MINUTES 11/05/2020 12:00:00 AM EDT [facility] ([facility]) Extended Individual Psychotherapy - 45 min 11/02/2020 12:00:00 AM EDT - 11/02/2020 12:00:00 AM EDT [facility] ([facility]) Extended Individual Psychotherapy - 45 min 12:00:00 AM EDT [facility] ([facility]) Brief Individual Psychotherapy - 30 min 10/21/2020 12:00:00 AM EDT - 10/21/2020 12:00:00 AM EDT [facility] ([facility]) Brief Individual Psychotherapy - 30 min 10/20/2020 12: 00:00 AM EDT [facility] ([facility]) OFFICE OUTPATIENT VISIT 15 MINUTES 10/06 12:00:00 AM EDT - 10/06/2020 12:00:00 AM EDT [facility] ([facility]) Psychotherapy ADD ON - 30 Minutes 10/06/2020 12:00:00 AM EDT [facility] ([facility]) OFFICE OUTPATIENT VISIT 15 MINUTES 10/06/2020 12:00:00 AM EDT [facility] ([facility]) Extended Individual Psychotherapy - 45 min 10/05/2020 12:00:00 AM EDT - 10/05/2020 12:00:00 AM EDT [facility] ([facility]) Extended Individual Psychotherapy - 45 min 12:00:00 AM EDT [facility] ([facility]) Extended Individual Psychotherapy - 45 min 09/22/2020 12:00:00 AM EDT - 09/22/2020 12:00:00 AM EDT [facility] ([facility]) Extended Individual Psychotherapy - 45 min 12:00:00 AM EDT [facility] ([facility]) Brief Individual Psychotherapy - 30 min 09/08/2020 12:00:00 AM EDT - 09/08/2020 12:00:00 AM EDT [facility] ([facility]) Brief Individual Psychotherapy - 30 min 09/07/2020 12: 00:00 AM EDT [facility] ([facility]) Extended Individual Psychotherapy - 45 min 08/24/2020 12:00:00 AM EDT - 08/24/2020 12:00:00 AM EDT [facility] ([facility]) Extended Individual Psychotherapy - 45 min 12:00:00 AM EDT [facility] ([facility]) OFFICE OUTPATIENT VISIT 15 MINUTES 08/14/2020 12:00:00 AM EDT MEDENT ([facility]) Brief Individual Psychotherapy - 30 min 08/11/2020 12:00:00 AM EDT - 08/11/2020 12:00:00 AM EDT [facility] ([facility]) Brief Individual Psychotherapy - 30 min 08/11/2020 12: 00:00 AM EDT [facility] ([facility]) OFFICE OUTPATIENT VISIT 15 MINUTES 08/10 12:00:00 AM EDT - 08/10/2020 12:00:00 AM EDT [facility] ([facility]) OFFICE OUTPATIENT VISIT 15 MINUTES 08/10/2020 12:00:00 AM EDT [facility] ([facility]) Extended Individual Psychotherapy - 45 min 07/29/2020 12:00:00 AM EST - 07/29/2020 12:00:00 AM EST [facility] ([facility]) Extended Individual Psychotherapy - 45 min 12:00:00 AM EST [facility] ([facility]) Extended Individual Psychotherapy - 45 min 07/22/2020 12:00:00 AM EST - 07/22/2020 12:00:00 AM EST [facility] ([facility]) Extended Individual Psychotherapy - 45 min 12:00:00 AM EST [facility] ([facility]) OFFICE OUTPATIENT VISIT 15 MINUTES 07/13 12:00:00 AM EST - 07/13/2020 12:00:00 AM EST [facility] ([facility]) OFFICE OUTPATIENT VISIT 15 MINUTES 07/13/2020 12:00:00 AM EST [facility] ([facility]) Extended Individual Psychotherapy - 45 min 07/08/2020 12:00:00 AM EST - 07/08/2020 12:00:00 AM EST [facility] ([facility]) Extended Individual Psychotherapy - 45 min 12:00:00 AM EST [facility] ([facility]) TEMPMHCTelemed 30" Psychotherapy 021 12:00:00 AM EST - 06/25/2020 12:00:00 AM EST [facility] ([facility]) TEMPMHCTelemed 30" Psychotherapy 06/23/2020 12:00:00 A M EST [facility] ([facility]) OFFICE OUTPATIENT VISIT 15 MINUTES 06/15 12:00:00 AM EST - 06/15/2020 12:00:00 AM EST [facility] ([facility]) OFFICE OUTPATIENT VISIT 15 MINUTES 06/15/2020 12:00:00 AM EST [facility] ([facility]) Brief Individual Psychotherapy - 30 min 06/15/2020 12:00:00 AM EST - 06/15/2020 12:00:00 AM EST [facility] ([facility]) Brief Individual Psychotherapy - 30 min 06/15/2020 12: 00:00 AM EST [facility] ([facility]) [id number]"Psychotherapy 1 12:00:00 AM EST - 06/08/2020 12:00:00 AM EST [facility] ([facility]) [id number]"Psychotherapy 06/08/2020 12:00:00 AM EST [facility] ([facility]) [id number]"Psychotherapy 0 12:00:00 AM EST - 05/13/2020 12:00:00 AM EST [facility] ([facility]) [id number]"Psychotherapy 05/13/2020 12:00:00 AM EST [facility] ([facility]) OFFICE OUTPATIENT VISIT 15 MINUTES 05/11 12:00:00 AM EST - 05/11/2020 12:00:00 AM EST [facility] ([facility]) OFFICE OUTPATIENT VISIT 15 MINUTES 05/11/2020 12:00:00 AM EST [facility] ([facility]) OFFICE OUTPATIENT VISIT 15 MINUTES 04/13 12:00:00 AM EST - 04/13/2020 12:00:00 AM EST [facility] ([facility]) OFFICE OUTPATIENT VISIT 15 MINUTES 04/13/2020 12:00:00 AM EST [facility] ([facility]) Brief Individual Psychotherapy - 30 min 04/13/2020 12:00:00 AM EST - 04/13/2020 12:00:00 AM EST [facility] ([facility]) Brief Individual Psychotherapy - 30 min 04/13/2020 12: 00:00 AM EST [facility] ([facility]) Extended Individual Psychotherapy - 45 min 04/03/2020 12:00:00 AM EST - 04/03/2020 12:00:00 AM EST [facility] ([facility]) Extended Individual Psychotherapy - 45 min 0 12:00:00 AM EST [facility] ([facility]) Extended Individual Psychotherapy - 45 min 03/20/2020 12:00:00 AM EDT - 03/20/2020 12:00:00 AM EDT [facility] ([facility]) Extended Individual Psychotherapy - 45 min 0 12:00:00 AM EDT [facility] ([facility]) Extended Individual Psychotherapy - 45 min 03/05/2020 12:00:00 AM EDT - 03/05/2020 12:00:00 AM EDT [facility] ([facility]) Extended Individual Psychotherapy - 45 min 0 12:00:00 AM EDT [facility] ([facility]) Results ID Date Data Source [id number] 09/10/2020 12:00:00 AM EDT [facility] Name Value Range Interpretation Code Description Data Tea rce(s) Supporting Document(s) SARS-CoV2 Rapid Antigen Negative [facility] This lab was ordered by [facility] and reported by [facility]. ID Date Data Source [id number] 04/30/2020 02:53:23 PM EST [place] ([facility]) Name Value Range Interpretation Code Description Data Tea rce(s) Supporting Document(s) Right Ear db 20db Right Ear Db CAITIE ([facility]) Left Ear 1000hz normal [facility] Right Ear 500hz normal Right Ear 500Hz ATHE ([facility]) Right Ear 1000hz normal Right Ear 1000Hz [facility]) Left Ear db 20db Left Ear Db CAITIE ([facility]) Left Ear 500hz normal Left Ear 500Hz CAITIE ([facility]) Left Ear 4000hz normal Left Ear 4000Hz ATH NA ([facility]) Left Ear 2000hz normal Left Ear 2000[facility]) Right Ear 2000hz normal Right Ear 2000Hz AT [facility]) Right Ear 4000hz normal Right Ear 4000Hz AT [facility] ([facility]) ID Date Data Source [id number] 04/30/2020 02:52:53 PM EST [place] ([facility]) Name Value Range Interpretation Code Description Data Tea rce(s) Supporting Document(s) L Eye Uncorrected 20/20 L Eye Uncorrected [place] ([facility]) R Eye Uncorrected 20/20 R Eye Uncorrected [place] ([facility]) ID Date Data Source [id number] 03/10/2020 03:48:23 PM EDT [facility] XR KNEE 3 VIEWS [id number] RESULTInterpr eted by:Sam Ritchie MDBilateral knees 3 viewsINDICATION: PainCOMPARISON: Left knee radiographs on 07/11/2019FINDINGS:Normal bone mineralization. Joint spaces are preserved. No joint effusion within either knee. No acute fracture or dislocation.IMPRESSION:Normal bilateral knee radiographs.This document has been electronically signed by Sam Ritchie MD on 03/10/2020 3:46 PM Name Value Range Interpretation Code Description Data Tea rce(s) Supporting Document(s) ID Date Data Source [id number] 03/10/2020 09:41:14 AM EDT [facility] XR HIP- UNILAT, 2-3 VIEWS [id number] RE SULTInterpreted by:DARRELL Ponce pelvis and left [...] rce(s) Supporting Document(s) ID Date Data Source [id number] 03/09/2020 04:00:50 PM EDT [facility] Name Value Range Interpretation Code Description Data Tea rce(s) Supporting Document(s) Progress Note [facility] CESOKz1eOmMFZuNq03/IEZmpBXZnv2DxTHovIRj1NEynNFYrN7DjOZK0wP4gDXA0TTyABhJbTtLrAOA8 [facility] [file] +regulator pin inserter/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+gLnWcJJxes+5f8tbxJ5g4wko dkLdHVHBPdlMqCMCUvadePtCtDQqlnE/0m4TnOp8/ZkGzAjAdDWSqVqMlPPLlODdE9LP3LGP0h5G5bHY z8Qa+VmSNT4wBt/FsxtxObewnRdTFJsam501fWHGmPA2G7yQ5oTRpW+sjvdwQYDqXPCVYphYADvRi4Vk K3ZkE6hCAowhaHfZhIw6Y6Cj85CIm33Bw3Dm2Evl1q UKRjP9B4hlWwKyMyrd+bj/FhQID1bHFs1Q6qL3cEMXXcFX+mr4TxItWMN+WCuO8KY1TlFnASTtAoKs21 U6yoJQIppDZYJ8RB/VxQf2lMrT2XxXRQXllU6rwWFTXcYZW4uzBI8QoENGZqqAhLnqKqDdd9aKHoGGhT zVHS/KFeAQtaOOdMUIj7vQhiLVSRAP7+YRVKBEvQCk aI30W5j0Mpvor98VOSINVPwo02TGyPG1KGOKU60ydYVgDc3XTM6X3vKqxPnd7mLzl+y4pAy1fltGC6s4 pUiAGA5th6k1OIzyZvjygtHnw3KNSRKzOr83zSo6aJt0Cs6JCOZvWTekorrRG4/5TuEw5Lb7lTSIRRyg RcyHfUraYhBsUh+UNRpeQQ4mCEN8kup5GiHquDgdYK NYY18Ro9lgkTvNKZmqT1oTYidr8dyMFKsFFjws9aA8qKoZZmwmzfpwfF9VNdeTG6Q/YvbaF2A01N+riH Es/dPhWjnpHTpw/Op6CruvjKKOELhbesEdy14ptWjMA7E0ZPNqWoMqOgslzugrJykC4nYLMMdAeWzRWV wF+VNOfN8P048iGvTeYZicXmM2MXEWqQktJKWo+WaG z2TZPHCiaWbPAtF+x4YxTPrQZppLZ5MPbF4W0vr5KRnacqHNglU6gFTpkYt1xU9OP/0+wuwTAz3Dnhoq e7SJgn6zKxv4yNFXD6BgUc+Davis/URoXsEz+rkxaP9cKuKYXGNWbSQSxLo+sCPVBmQVyULzrdDY7MgiH2+ [file] VGBqZ4DYCiLEwkGCZIWt0N Procedure Social History Code Duration Value Status Description Data Source(s ) Smoking 03/01/2021 12:00:00 AM EDT Unknown if ever smoked comp leted Unknown if ever smoked [facility] ([facility]) Smoking 02/15/2021 12:00:00 AM EDT Unknown if ever smoked comp leted Unknown if ever smoked [facility] ([facility]) Smoking 02/08/2021 12:00:00 AM EDT Unknown if ever smoked comp leted Unknown if ever smoked [facility] ([facility]) Smoking 01/04/2021 12:00:00 AM EDT Unknown if ever smoked comp leted Unknown if ever smoked [facility] ([facility]) Smoking 12/31/2020 12:00:00 AM EDT Unknown if ever smoked comp leted Unknown if ever smoked [facility] ([facility]) Smoking 12/21/2020 12:00:00 AM EDT Unknown if ever smoked comp leted Unknown if ever smoked [facility] ([facility]) Smoking 12/09/2020 12:00:00 AM EDT Unknown if ever smoked comp leted Unknown if ever smoked [facility] ([facility]) Smoking 12/08/2020 12:00:00 AM EDT Unknown if ever smoked comp leted Unknown if ever smoked [facility] ([facility]) Smoking 12/03/2020 12:00:00 AM EDT Unknown if ever smoked comp leted Unknown if ever smoked [facility] ([facility]) Smoking 11/16/2020 12:00:00 AM EDT Unknown if ever smoked comp leted Unknown if ever smoked [facility] ([facility]) Smoking 11/05/2020 12:00:00 AM EDT Unknown if ever smoked comp leted Unknown if ever smoked [facility] ([facility]) Smoking 11/02/2020 12:00:00 AM EDT Unknown if ever smoked comp leted Unknown if ever smoked [facility] ([facility]) Smoking 10/21/2020 12:00:00 AM EDT Unknown if ever smoked comp leted Unknown if ever smoked [facility] ([facility]) Smoking 10/06/2020 12:00:00 AM EDT Unknown if ever smoked comp leted Unknown if ever smoked [facility] ([facility]) Smoking 10/05/2020 12:00:00 AM EDT Unknown if ever smoked comp leted Unknown if ever smoked [facility] ([facility]) Smoking 09/22/2020 12:00:00 AM EDT Unknown if ever smoked comp leted Unknown if ever smoked [facility] ([facility]) Smoking 09/08/2020 12:00:00 AM EDT Unknown if ever smoked comp leted Unknown if ever smoked [facility] ([facility]) Smoking 08/24/2020 12:00:00 AM EDT Unknown if ever smoked comp leted Unknown if ever smoked [facility] ([facility]) Smoking 08/11/2020 12:00:00 AM EDT Unknown if ever smoked comp leted Unknown if ever smoked [facility] ([facility]) Smoking 08/10/2020 12:00:00 AM EDT Unknown if ever smoked comp leted Unknown if ever smoked [facility] ([facility]) Smoking 07/29/2020 12:00:00 AM EST Unknown if ever smoked comp leted Unknown if ever smoked [facility] ([facility]) Smoking 07/22/2020 12:00:00 AM EST Unknown if ever smoked comp leted Unknown if ever smoked [facility] ([facility]) Smoking 07/13/2020 12:00:00 AM EST Unknown if ever smoked comp leted Unknown if ever smoked [facility] ([facility]) Smoking 07/08/2020 12:00:00 AM EST Unknown if ever smoked comp leted Unknown if ever smoked [facility] ([facility]) Smoking 06/25/2020 12:00:00 AM EST Unknown if ever smoked comp leted Unknown if ever smoked [facility] ([facility]) Smoking 06/15/2020 12:00:00 AM EST Unknown if ever smoked comp leted Unknown if ever smoked [facility] ([facility]) Smoking 06/08/2020 12:00:00 AM EST Unknown if ever smoked comp leted Unknown if ever smoked [facility] ([facility]) Smoking 05/13/2020 12:00:00 AM EST Unknown if ever smoked comp leted Unknown if ever smoked [facility] ([facility]) Smoking 05/11/2020 12:00:00 AM EST Unknown if ever smoked comp leted Unknown if ever smoked [facility] ([facility]) Smoking 04/13/2020 12:00:00 AM EST Unknown if ever smoked comp leted Unknown if ever smoked [facility] ([facility]) Smoking 04/03/2020 12:00:00 AM EST Unknown if ever smoked comp leted Unknown if ever smoked [facility] ([facility]) Smoking 03/20/2020 12:00:00 AM EDT Unknown if ever smoked comp leted Unknown if ever smoked [facility] ([facility]) Alcohol intake 03/09/2020 12:00:00 AM EDT Lifetime non-drinker (finding) completed Lifetime non-drinker (finding) [facility] Tobacco use and exposure 03/09/2020 12:00:00 AM EDT Never used co mpleted Never used [facility] Smoking 03/09/2020 12:00:00 AM EDT Never smoker completed Never s moker [facility] Smoking 03/05/2020 12:00:00 AM EDT Unknown if ever smoked comp leted Unknown if ever smoked [facility] ([facility]) Vital Signs ID Date Data Source UNK Name Value Range Interpretation Code Description Data Source(s) Body height 64.00 in Normal (applies to non-numeric resu lts) 64.00 in [facility] ([facility]) Body weight Measured 199.00 lbs Normal (applies to n on-numeric results) 199.00 lbs [facility] ([facility]) Respiratory rate 18 min Normal (applies to non-numeric results) 18 min [facility] ([facility]) Body mass index (BMI) [Ratio] 34.15 kg/m2 No rmal (applies to non-numeric results) 34.15 kg/m2 [facility] ([facility]) Systolic blood pressure 123 mm[Hg] Normal (applies t o non-numeric results) 123 mm[Hg] [facility] ([facility]) Diastolic blood pressure 87 mm[Hg] Normal (applies to non-numeric results) 87 mm[Hg] [facility] ([facility]) Body temperature 100.10 degF Normal (applies to non-n umeric results) 100.10 degF [facility] ([facility]) Body height --lying 77 min Normal (applies to non-nume torsten results) 77 min [facility] ([facility]) Systolic blood pressure 123 mm[Hg] 123 mm[Hg] M [facility] ([facility], [facility]) Diastolic blood pressure 80 mm[Hg] 80 mm[Hg] [facility] ([facility], [facility]) Heart rate 84 /min 84 /min [facility] ([facility], [facility]) Respiratory rate 14 /min 14 /min [facility] ( [facility]) Oxygen saturation in Arterial blood by Pulse oximetry 97 % 97 % [facility] ([facility], [facility]) Body temperature 97.8 [degF] 97.8 [degF] [facility] ([facility], [facility]) Body weight 185.00 [lb_av] 185.00 [lb_av] MEDEN T ([facility], [facility]) Body height 66 [in_i] 66 [in_i] [facility] ([facility]) 5'6" Body mass index (BMI) [Ratio] 29.9 kg/m2 29.9 k g/m2 [facility] ([facility]) Body height 0.00 in Normal (applies to non-numeric resu lts) 0.00 in [facility] ([facility]) Body weight Measured 0.00 lbs Normal (applies to n on-numeric results) 0.00 lbs [facility] ([facility]) Body mass index (BMI) [Ratio] 0.00 kg/m2 No rmal (applies to non-numeric results) 0.00 kg/m2 [facility] ([facility]) Systolic blood pressure 0 mm[Hg] Normal (applies t o non-numeric results) 0 mm[Hg] [facility] ([facility]) Diastolic blood pressure 0 mm[Hg] Normal (applies to non-numeric results) 0 mm[Hg] [facility] ([facility]) Respiratory rate 14 /min 14 /min [facility] ( [facility]) Oxygen saturation in Arterial blood by Pulse oximetry 97 % 97 % [facility] ([facility], [facility]) Body temperature 97.8 [degF] 97.8 [degF] [facility] ([facility], [facility]) Body weight 180.00 [lb_av] 180.00 [lb_av] MEDEN T ([facility], [facility]) Body height 66 [in_i] 66 [in_i] [facility] ([facility], [facility]) 5'6" Body mass index (BMI) [Ratio] 29.0 kg/m2 29.0 k g/m2 [facility] ([facility], [facility]) Heart rate 73 /min 73 /min [facility] ([facility], [facility]) Systolic blood pressure 138 mm[Hg] 138 mm[Hg] [facility] ([facility], [facility]) Diastolic blood pressure 86 mm[Hg] 86 mm[Hg] [facility] ([facility], [facility]) Systolic blood pressure 0 mm[Hg] Normal (applies t o non-numeric results) 0 mm[Hg] [facility] ([facility]) Body height 0.00 in Normal (applies to non-numeric resu lts) 0.00 in [facility] ([facility]) Body weight Measured 0.00 lbs Normal (applies to n on-numeric results) 0.00 lbs [facility] ([facility]) Body mass index (BMI) [Ratio] 0.00 kg/m2 No rmal (applies to non-numeric results) 0.00 kg/m2 [facility] ([facility]) Diastolic blood pressure 0 mm[Hg] Normal (applies to non-numeric results) 0 mm[Hg] [facility] ([facility]) Body height 0.00 in Normal (applies to non-numeric resu lts) 0.00 in [facility] ([facility]) Body weight Measured 0.00 lbs Normal (applies to n on-numeric results) 0.00 lbs [facility] ([facility]) Body mass index (BMI) [Ratio] 0.00 kg/m2 No rmal (applies to non-numeric results) 0.00 kg/m2 [facility] ([facility]) Systolic blood pressure 0 mm[Hg] Normal (applies t o non-numeric results) 0 mm[Hg] [facility] ([facility]) Diastolic blood pressure 0 mm[Hg] Normal (applies to non-numeric results) 0 mm[Hg] [facility] ([facility]) Body height 0.00 in Normal (applies to non-numeric resu lts) 0.00 in [facility] ([facility]) Body weight Measured 0.00 lbs Normal (applies to n on-numeric results) 0.00 lbs [facility] ([facility]) Body mass index (BMI) [Ratio] 0.00 kg/m2 No rmal (applies to non-numeric results) 0.00 kg/m2 [facility] ([facility]) Systolic blood pressure 0 mm[Hg] Normal (applies t o non-numeric results) 0 mm[Hg] [facility] ([facility]) Diastolic blood pressure 0 mm[Hg] Normal (applies to non-numeric results) 0 mm[Hg] [facility] ([facility]) Body height 0.00 in Normal (applies to non-numeric resu lts) 0.00 in [facility] ([facility]) Body weight Measured 0.00 lbs Normal (applies to n on-numeric results) 0.00 lbs [facility] ([facility]) Body mass index (BMI) [Ratio] 0.00 kg/m2 No rmal (applies to non-numeric results) 0.00 kg/m2 [facility] ([facility]) Systolic blood pressure 0 mm[Hg] Normal (applies t o non-numeric results) 0 mm[Hg] [facility] ([facility]) Diastolic blood pressure 0 mm[Hg] Normal (applies to non-numeric results) 0 mm[Hg] [facility] ([facility]) Diastolic blood pressure 82 mm[Hg] 82 mm[Hg] [facility] ([facility]) Body height 63.5 [in_i] 63.5 [in_i] [facility] ([facility]) Body mass index (BMI) [Ratio] 32.2 kg/m2 32.2 k g/m2 [facility] ([facility]) Systolic blood pressure 124 mm[Hg] 124 mm[Hg] John RAMÍREZ ([facility]) Body weight 2950.4 [oz_av] 2950.4 [oz_av] ATHJUDY Lopez ([facility]) Body height 0.00 in Normal (applies to non-numeric resu lts) 0.00 in [facility] ([facility]) Body weight Measured 0.00 lbs Normal (applies to n on-numeric results) 0.00 lbs [facility] ([facility]) Body mass index (BMI) [Ratio] 0.00 kg/m2 No rmal (applies to non-numeric results) 0.00 kg/m2 [facility] ([facility]) Systolic blood pressure 0 mm[Hg] Normal (applies t o non-numeric results) 0 mm[Hg] [facility] ([facility]) Diastolic blood pressure 0 mm[Hg] Normal (applies to non-numeric results) 0 mm[Hg] [facility] ([facility]) Body height 64 [in_i] 64 [in_i] [facility] ([facility]) Body height 64 [in_i] 64 [in_i] [facility] ([facility]) ID Date Data Source [id number] 03/10/2020 04:30:46 PM T [facility] Name Value Range Interpretation Code Description Data Source(s) WEIGHT RECORDED 184.2 lb 184.2 lb [facility] Body height Measured 60 in 60 in [facility] Patient Treatment Plan of Care Planned Activity Planned Date Details Description Data Source (s) Amoxicillin 500 MG Oral Capsule 04/30/2020 12:00:00 AM [facility] ([facility]) Omeprazole 20 MG Delayed Release Oral Capsule 07/09/2019 12:00:00 A M [facility] Diclofenac Sodium 75 MG Delayed Release Oral Tablet 07/09/19 20 12:00:00 AM [facility] Diclofenac Sodium 75 MG / Misoprostol 0.2 MG Oral Tabl et 05/23/2019 12:00:00 AM [facility] Sulfamethoxazole 800 MG / Trimethoprim 160 MG Oral Tablet [facility] ([facility]) Penicillin V Potassium 500 MG Oral Tablet [facility] ([facility]) Omeprazole 20 MG Delayed Release Oral Capsule [facility] ([facility]) Hydrocortisone 10 MG/ML / Neomycin 3.5 M G/ML / Polymyxin B 82040 UNT/ML Otic Solution [facility] ([facility]) Ibuprofen 800 MG Oral Tablet [facility] ([facility]) Clotrimazole 10 MG/ML Topical Cream [facility] ([facility]) Clindamycin 150 MG Oral Capsule [facility] ([facility])
[2021-03-03 20:10] LABS: AMPHETAMINES LEVEL URINE NEGATIVE (NEGATIVE); BARBITURATES URINE NEGATIVE (NEGATIVE); BENZODIAZEPINES URINE NEGATIVE (NEGATIVE); CANNABINOIDS URINE NEGATIVE (NEGATIVE); COCAINE METABOLITE URINE NEGATIVE (NEGATIVE); METHADONE URINE NEGATIVE (NEGATIVE); OPIATES URINE NEGATIVE (NEGATIVE); PHENCYCLIDINE URINE NEGATIVE (NEGATIVE)
[2021-03-03 20:19] LABS: ACETAMINOPHEN LEVEL < 2.0 UG/ML (10.0-30.0); ALBUMIN 4.3 GM/DL (3.2-5.2); ALT/SGPT 93 U/L (12-78); BILIRUBIN,DIRECT 0.1 MG/DL (0.0-0.2); BILIRUBIN,TOTAL 0.4 MG/DL (0.2-1.0); BLOOD UREA NITROGEN 15 MG/DL (7-18); CALCIUM LEVEL 8.9 MG/DL (8.5-10.1); CARBON DIOXIDE LEVEL 27 MEQ/L (21-32); CHLORIDE LEVEL 108 MEQ/L (98-107); CREATININE FOR GFR 0.92 MG/DL (0.70-1.30); ETHYL ALCOHOL (ETHANOL) < 0.003 % (0.000-0.010); GLOMERULAR FILTRATION RATE > 60.0 (>60); GLUCOSE, FASTING 79 MG/DL (70-100); POTASSIUM SERUM 4.1 MEQ/L (3.5-5.1); SALICYLATE LEVEL < 1.7 MG/DL (5.0-30.0); SODIUM LEVEL 141 MEQ/L (136-145); TOTAL PROTEIN 7.6 GM/DL (6.4-8.2)
[2021-03-04 05:31] LABS: RSV AMPLIFICATION NEGATIVE (NEGATIVE)
[2021-03-04] MEDS ORDERED: KETOROLAC TROMETHAMINE 10 MG TAB PO ONE (08:45)
[2021-03-04] MEDS ORDERED: OMEP1CAP73 PO (09:19)
[2021-03-04] MEDS ORDERED: HOME MED LIST COMPLETE! XX SCH (09:20)
[2021-03-04 16:20] VITALS: BP 135/67
--- NOTE | 2021-03-05 08:01 | ECGEPIP ---
[facility] - ED Test Date: 2021-03-04 Pat Name: SARMAD LENTZ Department: Room: - Gender: Male [employer]: [facility] : 2000 Requested By: RADHA Del Toro Order Number: [id number] Reading MD: Gaetano Espinosa Measurements Intervals [place] Rate: 57 P: 35 ME: 140 QRS: 24 QRSD: 84 T: 13 QT: 396 QTc: 385 Interpretive Statements Sinus bradycardia NONSPECIFIC T WAVE ABNORMALITY(S) NO PRIORS FOR COMPARISON Electronically Signed on 03-05-2021 8:00:51 EDT by Gaetano Espinosa
== END 2021-03-04 16:23 ==
LOC: M ED 17:57
DX: F20.9 Schizophrenia, unspecified (principal); R44.3 Hallucinations, unspecified; R00.1 Bradycardia, unspecified; K21.9 Gastro-esophageal reflux disease without esophagitis

== ENCOUNTER → 2023-11-27 | Outpatient (REF) | payer OTHER ==
[~2023-11-27] MED LIST changes: +ARIP1TAB10 PO; -CONRAY-43 43% 50ML VIAL (Q9960) As Ordered ONE; +DICL75TA PO; +GUAN1TAB19 PO; -LIDOCAINE 1% MDV 20ML VIAL As Ordered ONE; +OMEP1CAP73 PO; +OMEP40CA4 PO; -methylPREDNISolone 80MG/ML SUSP 1ML VIAL (J1040) As Ordered ONE; -methylPREDNISolone SUSP 40 MG/ML (DEPO-medrol) VIAL (J1030) As Ordered ONE
[2023-11-27 17:17] LABS: ALBUMIN 4.2 G/DL (3.2-5.2); ALKALINE PHOSPHATASE 85 U/L (46-116); ALT/SGPT 68 U/L (7.0-40); AST/SGOT 24 U/L (<34); BILIRUBIN,TOTAL 0.6 MG/DL (0.3-1.2); BLOOD UREA NITROGEN 11 MG/DL (9-23); CARBON DIOXIDE LEVEL 28 MMOL/L (20-31); CHLORIDE LEVEL 108 MMOL/L (98-107); CHOLESTEROL LEVEL 160 MG/DL (<200); CHOLESTEROL RISK RATIO 6.45 (<5); CREATININE FOR GFR 1.04 MG/DL (0.70-1.30); GLOMERULAR FILTRATION RATE > 60.0 (>60); GLUCOSE, FASTING 86 MG/DL (60-100); HDL CHOLESTEROL 24.8 MG/DL (>40); LDL CHOLESTEROL 105.6 MG/DL (<100); NON-HDL-C 135.2 MG/DL; POTASSIUM SERUM 4.4 MMOL/L (3.5-5.1); SODIUM LEVEL 142 MMOL/L (136-145); TRIGLYCERIDES LEVEL 148 MG/DL (<150)
[2023-11-27 17:19] LABS: FREE T4 1.35 NG/DL (0.89-1.76); THYROID STIMULATING HORMONE 2.266 uIU/ML (0.55-4.78)
== END ==
LOC: M LAB REF 16:33
PROVIDERS: ATTEND Family Medicine Addiction Medicine
DX: E66.9 Obesity, unspecified (principal); Z68.36 Body mass index [BMI] 36.0-36.9, adult